=== PATIENT | male | born 1975 | race Caucasian/White ===

== ENCOUNTER 2017-11-24 18:52 | Inpatient (IN) | payer OTHER ==
[~2017-11-24] VITALS: Ht 170.2 cm; Wt 93.0 kg
--- NOTE | 2017-11-24 18:58 | ED HEADACHE COMPLAINT ---
History of Present Illness General Chief Complaint: Headache Stated Complaint: HEADACHE Source: patient Exam Limitations: no limitations Allergies Coded Allergies: sumatriptan (From IMITREX) (Intermediate, CARDIAC FAILURE 11/24/17) Reconcile Medications Albuterol Sulfate (Proair Hfa) 90 MCG HFA.AER.AD 2 PUF INH AD PRN RESP. ( Reported) Budesonide/Formoterol Fumarate (Symbicort 160-4.5 Mcg Inhaler) 160 MCG-4.5 MCG/ ACTUATION HFA.AER.AD 2 PUF INH QAM RESP. (Reported) Cetirizine HCl (Zyrtec) 10 MG TABLET 1 TAB PO DAILY ALLERGIES (Reported) Hydrochlorothiazide 25 MG TABLET 1 TAB PO DAILY DIURETIC/BP (Reported) Ibuprofen (Wal-Profen) 200 MG TABLET 4 TAB PO PRN PAIN (Reported) Lisinopril 40 MG TABLET 1 TAB PO DAILY BP (Reported) Methadone HCl 10 MG/5 ML SOLUTION 80 MG PO DAILY MENTAL HEALTH (Reported) Naproxen Sodium (Aleve) 220 MG CAPSULE 3-4 TAB PO BID PAIN (Reported) Tiotropium Stollings (Spiriva) 18 MCG CAP.W.DEV 1 CAP INH DAILY RESP. (Reported ) Triage Nurses Notes Reviewed? 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 Patient does state that yesterday his headache improved however today headache was unrelieved with Aleve. Patient also complains of chronic shortness of breath with no new changes however states he has photophobia and mild nausea however can tolerate by mouth prior to arrival. Denies any fever chills acute onset or thunderclap worse headache of life symptoms, chest pain arm pain jaw pain leg swelling hemoptysis. (Jeremy CARMEN,Andres) Vital Signs & Intake/Output Vital Signs & Intake/Output Vital Signs Date Time Temp Pulse Resp B/P B/P Pulse O2 O2 Flow FiO2 Mean Ox Delivery Rate 11/24 2154 75 18 176/76 88 Nasal 2.0L Cannula 11/24 2043 97.5 72 18 205/110 11/24 2035 72 205/110 11/24 2034 97.5 73 18 203/108 93 Aerosol 10L Mask 11/24 2010 91 Nasal 2.0L Cannula 11/24 2001 90 Room Air Room Air 11/24 1957 97.1 77 16 227/122 11/24 1957 97.1 77 16 227/122 11/24 1945 77 18 227/122 84 Room Air Room Air 11/24 1926 80 11/24 190 97.1 86 16 227/133 84 Room Air (Beatriz NICHOLS,Madi Gleason) Past History Medical History Any Pertinent Medical History? see below for history Neurological: migraine Cardiovascular: hypertension Respiratory: bronchitis, COPD Psychiatric: IV drug abuse Surgical History Surgical History: non-contributory Family History Hx Contributory? No (Andres Dorsey) Review of Systems Review of Systems Constitutional: Reports: no symptoms. Eyes: Reports: see HPI, photophobia. Ears, Nose, Throat, Mouth: Reports: no symptoms. Respiratory: Reports: see HPI, short of breath. Cardiovascular: Reports: no symptoms. Gastrointestinal/Abdominal: Reports: see HPI, nausea. Denies: abdominal pain. Genitourinary: Reports: no symptoms. Musculoskeletal: Reports: no symptoms. Skin: Reports: no symptoms. Neurological/Psychological: Reports: see HPI, headache. Hematologic/Endocrine: Reports: no symptoms. Endocrine: Reports: no symptoms. Immunologic/Allergic: Reports: no symptoms. All Other Systems: Reviewed and Negative (Andres Dorsey) Physical Exam Physical Exam General Appearance: no apparent distress, comfortable, obese Head: atraumatic Eyes: Bilateral: normal appearance, PERRL, EOMI. Ears, Nose, Throat: normal pharynx, normal ENT inspection, hearing grossly normal Neck: normal inspection Respiratory: quiet respiration, decreased breath sounds Cardiovascular: regular rate/rhythm Gastrointestinal: normal bowel sounds, soft, non-tender Extremities: normal inspection, normal capillary refill, no edema Cranial Nerves: normal hearing, normal speech, PERRL Skin: intact, normal color, warm/dry Core Measures Sepsis Present: No Sepsis Focused Exam Completed? No (Andres Dorsey) Progress Differential Diagnosis: carotid dissection, cav sinus thromb, cluster HAY, encephalitis, IC mass/tumor, intracranial Hem., meningitis, migraine HAY, musculoskeletal pain, sinusitis, SSS thrombosis, subarach. Hem., tension HAY, temporal arteritis, TMJ syndrome, viral cephalgia Diagnostic Imaging: Viewed by Me: Radiology Read, CT Scan. Radiology Impression: no acute abnormality CXR Impression: no acute abnormality, no infiltrates Initial ED EKG: normal p-waves, normal QRS complex, normal sinus rhythm, 72 BPM, NSR Comments: PATIENT: GORDON HAGEN PRESENT AGE: 42 PATIENT ACCOUNT NO: [id number] : 75 LOCATION: [facility] ORDERING PHYSICIAN: Andres CARMEN SERVICE DATE: 11/24/17 EXAM TYPE: CAT - CT HEAD WO IV CONTRAST EXAMINATION: CT HEAD WITHOUT CONTRAST CLINICAL INFORMATION: Headache COMPARISON: None TECHNIQUE: Contiguous axial imaging was performed from the skull base to vertex without intravenous administration of contrast. DLP: 620.92 mGy-cm FINDINGS: There is no evidence of acute intracranial hemorrhage or territorial infarction. No abnormal mass effect or midline shift is seen. Stephens to white matter differentiation is well preserved. No extra-axial fluid collections are identified. The ventricles are normal in size. There is no abnormal attenuation within the brain parenchyma. No osseous abnormality. There is a small density at the vertex of the left parietal scalp. The mastoid air cells and visualized portions of the paranasal sinuses are well aerated. IMPRESSION: No acute intracranial pathology. DICTATED BY: Russ Bradley MD DATE/TIME DICTATED:11/24/172130 TERRITORY SALES REPRESENTATIVE:AISHWARYA PATIENT: GORDON HAGEN PRESENT AGE: 42 PATIENT ACCOUNT NO: [id number] : 75 LOCATION: ER ORDERING PHYSICIAN: Andres CARMEN SERVICE DATE: 11/24/17 EXAM TYPE: RAD - XRY-PORTABLE CHEST XRAY EXAMINATION: XR PORTABLE CHEST CLINICAL INFORMATION: Shortness of breath. Hypertension. COMPARISON: None TECHNIQUE: Portable frontal view of the chest was obtained. 8:03 PM FINDINGS: No significant abnormality is noted involving the heart, lungs, mediastinum, bony thorax or soft tissues. IMPRESSION: No acute abnormality of the chest. DICTATED BY: Russ Bradley MD DATE/TIME DICTATED:11/24/17 / (Andres Dorsey) Plan of Care: Orders Procedure Date/time Status Regular Diet 11/25 B Active Misc Message 11/24 2121 Active ED Holding Orders 11/24 2121 Active Vital Signs 11/24 2121 Active Code Status 11/24 2121 Active Patient Data 11/24 2115 Active Admit to inpatient 11/24 2111 Active Intake & Output 11/24 1999 Active RAPID VIRAL INFLUENZA A 11/24 1918 Complete D-DIMER 11/24 1916 Complete ARTERIAL BLOOD GAS (GEN) 11/24 1915 Active Telemetry/[place] Operator Surface 11/24 1912 Active URINE DRUG SCREEN FOR ER ONLY 11/24 1909 Complete URINALYSIS 11/24 1909 Complete TROPONIN LEVEL 11/24 1909 Complete COMPREHENSIVE METABOLIC PANEL 11/24 1909 Complete CBC WITHOUT DIFFERENTIAL 11/24 1909 Complete EKG 11/24 1907 Active Laboratory Tests 11/24/172020: D-Dimer High Sensitivty < 200 11/24/171951: Urine Opiates Screen 1733.00, Methadone Screen > 735 H, Barbiturate Screen < 60 , Ur Phencyclidine Scrn < 6.00, Amphetamines Screen < 100, U Benzodiazepines Scrn < 85, Urine Cocaine Screen < 50, Urine Cannabis Screen < 5.00, Urine Color YEL, Urine Clarity CLEAR, Urine pH 7.0, Ur Specific [place] 1.025, Urine Protein 100 H, Urine Ketones NEG, Urine Nitrite NEG, Urine Bilirubin NEG, Urine Urobilinogen 0.2, Ur Leukocyte Esterase NEG, Ur Microscopic SEDIMENT EXAMINED, Urine RBC 3-5, Urine WBC RARE, Ur Epithelial Cells RARE, Urine Bacteria RARE H, Urine Mucus FEW, Urine Hemoglobin SMALL H, Urine Glucose NEG 11/24/171932: Anion Gap 9, Estimated GFR > 60, BUN/Creatinine Ratio 26.7 H, Glucose 114 H, Calcium 9.9, Total Bilirubin 1.0, AST 26, ALT 43, Alkaline Phosphatase 111, Troponin I < 0.01, Total Protein 8.1, Albumin 4.6, Globulin 3.5, Albumin/ Globulin Ratio 1.3, CBC w Diff NO MAN DIFF REQ, RBC 6.13 H, MCV 88.1, MCH 28.2, RDW 13.9, MPV 7.8, Gran % 76.0 H, Lymphocytes % 14.2 L, Monocytes % 7.8, Eosinophils % 1.1, Basophils % 0.9, Absolute Granulocytes 7.8 H, Absolute Lymphocytes 1.4, Absolute Monocytes 0.8 H, Absolute Eosinophils 0.1, Absolute Basophils 0.1, PUBS MCHC 32.0 L 11/24/171924: pH 7.36, pCO2 59 H, pO2 49 *L, HCO3 33 H, ABG O2 Sat (Measured) 80.0 L, Carboxyhemoglobin 5.1 H, O2 Concentration % R/A, Temperature 97.1, Phlebotomy Draw Site RIGHT RADIAL Microbiology 11/24 1951 NASOPHARYN: Influenza Virus A & B Rapid Smear - COMP Other differential diagnoses include pneumothorax hemothorax pulmonary embolism myocardial infarction bronchospasms bronchitis pneumonia Patient currently on arrival is resting comply bedside no respiratory distress HOWEVER oxygen saturation does know at room air between 80 and 85%. After ABG was administered patient was given supplemental oxygen Patient does have concerns of significantly elevated blood pressure and symptoms of photophobia and headache and which labetalol was administered along with his normal by mouth medications with minimal improvement of his blood pressure symptoms of headache mildly improved CT scan was ordered however there is no neurological deficit on exam, Patient was given a low-dose 1 hour nebulizer treatment for concerns of hypoxia Negative d-dimer negative troponin and EKG was unremarkable Patient will be admitted for concerns of hypertensive urgency and COPD exacerbation ANOTHER 10 mg of labetalol was administered Discussed admission with Dr. Henderson I also discussed with patient and fianc of my concerns of patient being on methadone and current drug screen showing opiates and methadone (Jeremy CARMEN,Andres) Comments: 11/24/2017 8:05:59 PM patient states he has no dyspnea currently. I have updated him on test results. I also notified him that we will likely admit him given his severe hypertension and the findings on ABG. (Beatriz NICHOLS,Madi Gleason) Departure Departure Disposition: STILL A PATIENT Condition: Guarded Clinical Impression Primary Impression: Hypertensive urgency Secondary Impressions: COPD exacerbation, Headache, Opiate abuse, episodic Departure Forms: Customer Survey General Discharge Information Admission Note Spoke With: Lauryn Pugh MD Documentation of Exam: Documentation of any treatments & extenuating circumstances including Concerns Regarding Discharge (functional status, medication knowledge or non-compliance, living conditions, etc.) that warrant an admission rather than observation: [ Patient requires IV steroids, antibiotics, repeat NEBS, pulmonary consultation and antihypertensive medications for concerns of hypertensive urgency and COPD] (Andres Dorsey) PA/RIB BENDER Co-Sign Statement Statement: ED Attending supervision documentation- [x] I saw and evaluated the patient. I have also reviewed all the pertinent lab results and diagnostic results. I agree with the findings and the plan of care as documented in the PA's/RIB BENDER's documentation. Patient presents for headache and shortness of breath. Physical examination reveals a nonfocal neurologic examination despite severe hypertension. [] I have reviewed the ED Record and agree with the PA's/RIB BENDER's documentation. [] Additions or exceptions (if any) to the PAs/RIB BENDER's note and plan are summarized below: [] (Beatriz NICHOLS,Madi Gleason) Critical Care Note Critical Care Note Critical Care Time: 30-74 min (Andres Dorsey)
[2017-11-24] MEDS ORDERED: SPIRIVA18 MCG INH (19:27)
[2017-11-24] MEDS ORDERED: PROAIR HFA8.5 GM INH (19:28)
[2017-11-24] MEDS ORDERED: SYMBICORT 16010.2 GM INH (19:29)
[2017-11-24] MEDS ORDERED: HYDROCHLOROTHIA25 M1 PO (19:29)
[2017-11-24] MEDS ORDERED: LISINOPRIL40 M1 PO (19:29)
[2017-11-24] MEDS ORDERED: METHADONE10 MG/5 M2 PO (19:30)
[2017-11-24] MEDS ORDERED: WAL-PROFEN200 MG PO (19:30)
[2017-11-24] MEDS ORDERED: ALEVE220 M1 PO (19:30)
[2017-11-24] MEDS ORDERED: ZYRTEC10 M3 PO (19:31)
[2017-11-24 19:47] LABS: ABSOLUTE BASOPHIL COUNT 0.1 /CUMM (0.0-0.2); ABSOLUTE EOSINOPHIL COUNT 0.1 /CUMM (0.0-0.7); ABSOLUTE GRANULOCYTE CT 7.8 /CUMM (1.4-6.5); ABSOLUTE LYMPH COUNT 1.4 /CUMM (1.2-3.4); ABSOLUTE MONOCYTE COUNT 0.8 /CUMM (0.10-0.60); BASOPHIL % 0.9 % (0.0-2.0); EOSINOPHIL % 1.1 % (0-5); MEAN CORPUSCULAR HGB 28.2 PG (27.0-31.0); MEAN CORPUSCULAR VOLUME 88.1 FL (80.0-94.0); MEAN PLATELET VOLUME 7.8 FL (7.4-10.4); PLATELET COUNT 261 /CUMM (130-400); RBC DISTRIBUTION WIDTH 13.9 % (11.5-14.5); RED BLOOD CELL CT 6.13 /CUMM (4.70-6.10); WHITE BLOOD CELL COUNT 10.2 /CUMM (4.8-10.8)
--- NOTE | 2017-11-24 20:27 | RADIOLOGY REPORT ---
EXAMINATION: XR PORTABLE CHEST CLINICAL INFORMATION: Shortness of breath. Hypertension. COMPARISON: None TECHNIQUE: Portable frontal view of the chest was obtained. 8:03 PM FINDINGS: No significant abnormality is noted involving the heart, lungs, mediastinum, bony thorax or soft tissues. IMPRESSION: No acute abnormality of the chest.
--- NOTE | 2017-11-24 21:32 | History & Physical ---
Don Nicholas MD 11/24/172130: General Information and HPI MD Statement: I have seen and personally examined GORDON HAGEN and documented this H&P. The patient is a 42 year old M who presented with a patient stated chief complaint of [headache]. Source of Information: patient, family Exam Limitations: no limitations History of Present Illness: Patient is a 42-year-old male with past medical history of hypertension diagnosed 10 years ago, migraines not currently on any medications, asthma and COPD, history of IV drug use last used heroin 1 year prior to this admission currently on methadone, history of hepatitis C s/p Harvoni treatment, carpal tunnel syndrome, history of mutliple admissions over the past year for respiratory failure requiring intubation and ICU admission presents this admission with chief complaint of headaches. Patient states that over the past few weeks he has been having flu like symptoms with fever and chills and sinus pressure and nasal congestion. States he has been taking zyrtec and sudafed which helped a little however started experiencing headaches. States that over the last month he has had approximately 5x. States over the past 3 days the headache has worsened. Describes the headache as a constant, throbbing, diffuse pain over entire head however mainly concentrated around his eyes. Patient endorses photophobia, nausea, vomitting, double vision. Denies chest pain, SOB, abdominal pain, weakness or numbness. Patient states he found some relief one night prior to admission with alleve and ibuprofen and was able to sleep for a short while. However states the headache returned and has been too intense which prompted this hospital visit. Patient states he did receive some vicodin from his Aunt (who was unaware of his IVDA history). Patient states 6 days prior to this admission he ran out of his antihypertensive medications and was unable to go see his PCP. States he is on lisinopril and hydrochlorothiazide however has not taken the hydrochlorothiazide for approximately 1 month. States he monitors his BP at home and it runs in the 160s /90s. Patient states he has a history of migraines however has not been on any medications recently. Is not currently on any abortive or prophylactic therapy. States he is allergic to imitrex and went into respiratory distress. Patient states prior to the past month when he was compliant with his antihypertensive medications he had on average 1-2 headaches/month. Patient states that over the past 1 year he has required multiple hospital visits due to respiratory failure and has required intubation and ICU admission. [facility] he was sent home with oxygen supplement however has not required oxygen up until this most recent illness. ROS: negative except as above PMH: as above FH: Father ( age 54) of brain cancer, h/o stroke and htn, Mother recently passed - has history of stroke and HTN, Brother - healthy SH: Patient states he has smoked approximately 1ppd for the past 25 years however has decreased to 3 cig per day recently. [facility] he used heroin in the past however has been clean for past year. [facility] he has a remote history of cocaine use 10 years ago. Allergies: Mold Imitrex On admission: Vitals: Tmax: 97.5, HR: 72-86, RR: 16-18, BP: 227/133 --> 205/110 Labs: WBC: 10.2, H/H: 17.3/54, Platelets: 261 Na: 138, K: 4.8, Cl: 92, CO2: 36, BUN: 16, Cr: 0.6, Glucose: 114, Trop < 0.01 U/A: negative AB.36/pCO2: 59,/pO2: 49/HCO3: 33 Imaging: Head CT: negative for acute pathology CXR: negative for acute pathology Allergies/Medications Allergies: Coded Allergies: sumatriptan (From IMITREX) (Intermediate, CARDIAC FAILURE 11/24/17) Home Med list Albuterol Sulfate (Proair Hfa) 90 MCG HFA.AER.AD 2 PUF INH AD PRN RESP. ( Reported) Azithromycin 500 MG TABLET 1 TAB PO DAILY copd Budesonide/Formoterol Fumarate (Symbicort 160-4.5 Mcg Inhaler) 160 MCG-4.5 MCG/ ACTUATION HFA.AER.AD 2 PUF INH QAM RESP. (Reported) Cetirizine HCl (Zyrtec) 10 MG TABLET 1 TAB PO DAILY ALLERGIES (Reported) Hydrochlorothiazide 25 MG TABLET 1 TAB PO DAILY DIURETIC/BP (Reported) Hydrochlorothiazide 25 MG TABLET 1 TAB PO DAILY hypertension Ibuprofen (Wal-Profen) 200 MG TABLET 4 TAB PO PRN PAIN (Reported) Lisinopril 40 MG TABLET 1 TAB PO BID HTN Methadone HCl 10 MG/5 ML SOLUTION 80 MG PO DAILY MENTAL HEALTH (Reported) Naproxen Sodium (Aleve) 220 MG CAPSULE 3-4 TAB PO BID PAIN (Reported) Prednisone 20 MG TABLET 1 TAB PO SEE INSTRUCT copd 1. take 4 tabs for 1 day 2. 3 tabs/day for 2 days 3. 2 tabs/day for 2 days 4. 1 tab/day for 2 days then stop Tiotropium [place] (Spiriva) 18 MCG CAP.W.DEV 1 CAP INH DAILY RESP. (Reported ) Past History Travel History Traveled to [place] past 21 day No Medical History Neurological: migraine EENT: NONE Cardiovascular: hypertension Respiratory: bronchitis, COPD Gastrointestinal: NONE Hepatic: NONE Renal: NONE Musculoskeletal: NONE Psychiatric: IV drug abuse Endocrine: NONE Surgical History Surgical History: non-contributory Past Family/Social History Psychosocial History ETOH Use: denies use Illicit Drug Use: denies illicit drug use Review of Systems Review of Systems Constitutional: Reports: chills, fever. Cardiovascular: Denies: no symptoms, see HPI. Respiratory: Reports: see HPI, cough, short of breath. GI: Reports: see HPI, nausea, vomiting. Genitourinary: Denies: no symptoms. Musculoskeletal: Denies: no symptoms. Skin: Denies: no symptoms. Neurological/Psychological: Reports: see HPI, headache. Exam & Diagnostic Data Last 24 Hrs of Vital Signs/I&O Vital Signs Date Time Temp Pulse Resp B/P B/P Pulse O2 O2 Flow FiO2 Mean Ox Delivery Rate 11/24 2154 75 18 176/76 88 Nasal 2.0L Cannula 11/24 2043 97.5 72 18 205/110 11/24 2035 72 205/110 11/24 2034 97.5 73 18 203/108 93 Aerosol 10L Mask 11/24 2010 91 Nasal 2.0L Cannula 11/24 2001 90 Room Air Room Air 11/24 1957 97.1 77 16 227/122 11/24 1957 97.1 77 16 227/122 11/24 1945 77 18 227/122 84 Room Air Room Air 11/24 1926 80 11/24 190 97.1 86 16 227/133 84 Room Air Physical Exam General Appearance Alert, Oriented X3, Cooperative, No Acute Distress Skin Temp/Moisture Exam: Warm/Dry HEENT Atraumatic, PERRLA, EOMI, Mucous Membr. moist/pink Cardiovascular Regular Rate, Normal S1, Normal S2 Lungs decreased air entry bilaterally with prolonged expiratory wheezing Abdomen Normal Bowel Sounds, Soft, No Tenderness Neurological Normal Speech, Strength at 5/5 X4 Ext, Normal Tone, Sensation Intact, Cranial Nerves 3-12 NL, Reflexes 2+, negative babinksi, negative rhomberg Extremities No Clubbing, No Cyanosis, No Edema, Normal Pulses, No Tenderness/ Swelling, thickening of toenails Vascular Normal Pulses, Pulses Symmetrical Last 24 Hrs of Labs/Amadou: Laboratory Tests 11/24/172020: D-Dimer High Sensitivty < 200 11/24/171951: Urine Opiates Screen 1733.00, Methadone Screen > 735 H, Barbiturate Screen < 60 , Ur Phencyclidine Scrn < 6.00, Amphetamines Screen < 100, U Benzodiazepines Scrn < 85, Urine Cocaine Screen < 50, Urine Cannabis Screen < 5.00, Urine Color YEL, Urine Clarity CLEAR, Urine pH 7.0, Ur Specific [place] 1.025, Urine Protein 100 H, Urine Ketones NEG, Urine Nitrite NEG, Urine Bilirubin NEG, Urine Urobilinogen 0.2, Ur Leukocyte Esterase NEG, Ur Microscopic SEDIMENT EXAMINED, Urine RBC 3-5, Urine WBC RARE, Ur Epithelial Cells RARE, Urine Bacteria RARE H, Urine Mucus FEW, Urine Hemoglobin SMALL H, Urine Glucose NEG 11/24/171932: Anion Gap 9, Estimated GFR > 60, BUN/Creatinine Ratio 26.7 H, Glucose 114 H, Calcium 9.9, Total Bilirubin 1.0, AST 26, ALT 43, Alkaline Phosphatase 111, Troponin I < 0.01, Total Protein 8.1, Albumin 4.6, Globulin 3.5, Albumin/ Globulin Ratio 1.3, CBC w Diff NO MAN DIFF REQ, RBC 6.13 H, MCV 88.1, MCH 28.2, RDW 13.9, MPV 7.8, Gran % 76.0 H, Lymphocytes % 14.2 L, Monocytes % 7.8, Eosinophils % 1.1, Basophils % 0.9, Absolute Granulocytes 7.8 H, Absolute Lymphocytes 1.4, Absolute Monocytes 0.8 H, Absolute Eosinophils 0.1, Absolute Basophils 0.1, PUBS MCHC 32.0 L 11/24/171924: pH 7.36, pCO2 59 H, pO2 49 *L, HCO3 33 H, ABG O2 Sat (Measured) 80.0 L, Carboxyhemoglobin 5.1 H, O2 Concentration % R/A, Temperature 97.1, Phlebotomy Draw Site RIGHT RADIAL Microbiology 11/24 1951 NASOPHARYN: Influenza Virus A & B Rapid Smear - COMP Assessment/Plan Assessment: Patient is a 42-year-old male with past medical history of hypertension diagnosed 10 years ago, migraines not currently on any medications, asthma and COPD, history of IV drug use last used heroin 1 year prior to this admission currently on methadone, history of hepatitis C s/p Harvoni treatment, carpal tunnel syndrome, history of mutliple admissions over the past year for respiratory failure requiring intubation and ICU admission presenting this admission with findings consistent with hypertensive urgency vs emergency, COPD exacerbations and headaches related to uncontrolled blood pressure vs migraines. Patient will be admitted to the telemtry floor for management of the followin. Hypertensive urgency vs emergency - Patient's blood pressure upon arrival was 227/133 which decreased to 205/110 after receiving labetalol IV, lisinopril and hydrochlorothiazide in the ED. Patient is having headaches however is not exhibiting signs of end organ damage based on physical exam with no focal neurological finding and normal fundoscopic exam, or lab work with normal troponin, creatinine of 0.[address] and negative chest xray. * continue serial trops and EKG * continue to monitor on telemetry * slowly decrease blood pressure 2. Headaches mostly likely component of both migraine and secondary to hypertension * outpatient neurology referral * pain control per pain pathway 3. COPD exacerbation/Asthma - patient desatted into the 80s requiring 10L aerosol mask * oxygen supplement as needed * TRC and DuoNeb * Azithromycin 250mg IV * IV Solumedrol 4. History of IVDA with heroin currently on methadone. Patient last took his methadone this morning at 7AM. * Confirm methadone dose with the [facility] in the AM 5. Tobacco use * Patient counseled on tobacco cessation Patient requires primary care referral DVT PPx: Heparin SC Diet: Heart healthy Code: Full code As Ranked By This Provider Problem List: 1. Hypertensive urgency 2. Headache 3. COPD exacerbation 4. Opiate abuse, episodic Core Measures/Misc (08/07) Acute Coronary Syndrome ACS Diagnosis: No Congestive Heart Failure Congestive Heart Failure Diagnosis No Cerebrovascular Accident CVA/TIA Diagnosis: No VTE (View Protocol) VTE Risk Factors Age>40 No Mechanical VTE Prophylaxis d/t N/A MechProphylax Ordered No VTE Pharm Prophylaxis d/t NA PharmProphylax ordered Sepsis (View protocol) Sepsis Present: No Princess Martinez 11/24/17 2333: Resident Review Statement Resident Statement: examined this patient, discussed with customer experience intern, agreed with customer experience intern, discussed with family, reviewed EMR data (avail), discussed with nursing , discussed with case mgmt, reviewed images, amended to note Other Findings: The 42-year-old gentleman with past medical history of hypertension, hepatitis C finished his treatments with TAWANNA Rainey cleared for past now on daily methadone, relatively uncontrolled migraine headaches not on mainetnance medication , COPD and childhood asthma presented to the emergency room complaining of worsening headache and blurry vision. According to patient his intermittent headaches, associated with blurred vision (just when the headache is very severe); he had episodes of upper respiratory tract infection and took [id number] pseudoephedrine. Patient reports that taking cold medicine worsened his headaches. Haedaches are 6 out of 10, not radiating, W/O any weajness or numbness, Chest pain or shortness of breath. He ran out of lisionopril 6 days ago and as he has not been complaint with taking HCTZ at all; his average BP runs 160s SBP over 130s DBP; has got headaches more frequently ( which he beleives is different from his normal migraine headaches); the lates spell of headache was today, was accompanied w/ blurry vission and chest tightness. He denies and CP, SOB ( his COPD and asthma has been controlled ; has not been using albuterol or O2 at home); no weakness or numbness, no shining floaters in his visual field. SH: daily smoker 20PPd, on daily methadone 80 mg and remote Hx of Coccain abuse, FH: ?? stroke in his father and HTN in both parents. In the ED initially his VS: 97/86/16;227/130; 84% RA. He was given 40 mg of lisinopril and 25 mg HCTZ and 20 mg IV labetalol push and blood pressure decreased to 176/76. ROS: head ache and chest tightness and blurr vision are all resolved. PH/EX: HEET: no JVD was presente, No papiledema; Heart: S1S2 no murmur; Lungs: very limited air movement, and prolonged expiration ?? wheezingneuro exa,: strenght and senseation: WNL, romberg: negative; No peripheral edema, pulses symmetric in both upper and lower extremities Of note patient has a history of frequent hospitalization for COPD exacerbation and multiple pneumonias and according to patient he recently had a cardiac stress test and echo of his hospitalization. Pertinent Data: ABG 7.36/59/33 d-dimer negative, chest x-ray: No evidence of flash pulmonary edema infiltration no widening of the mediastinum. Head CT scan without IV contrast: No pathology finding Blood work within normal limits Chemistry: Normal electrolytes BUN 16 creatinine 0.6 bicarbonate 36 list of active problems #1 hypertensive emergency #2 uncontrolled migraine headache #3 COPD/asthma overlap syndrome exacerbation #4 chronic opiate dependence Plan Admit to telemetry for continuous heart monitoring Trending troponin EKG every 6 hours Decrease blood pressure by 20% the first 24 hours (permissive hypertension) to prevent COST REPORT CLERK ischemia Watch of antihypertensive medication tonight and resume lisinopril and hydrochlorothiazide in the a.m. Continue Symbicort 1 puff twice a day spriva 1 puff daily IV azithromycin 500 mg daily Neurology referral for outpatient assessments of his migraine headaches Primary care referral for his hypertension management and evaluation for secondary causes of hypertension Confirm the dose of methadone with [facility] in [place] Subcutaneous heparin 5000 units every 8 hours for DVT prophylaxis Lauryn Allison 11/25/17 0422: Attending MD Review Statement Attending Statement Attending MD Statement: examined this patient, discuss w/resident/PA/OCEAN IMPORT REPRESENTATIVE, agreed w/resident/PA/OCEAN IMPORT REPRESENTATIVE, discussed with family, reviewed EMR data (avail), reviewed images, amended to note Attending Assessment/Plan: CC: Headache PMH: Hypertension, COPD/asthma, questionable migraine, history of substance abuse (heroin) currently on methadone, history of hep C S/P treatment. Patient came to ER for severe persistent headache. Patient states that the first episode of headache started approximately 2 weeks back when he had upper respiratory sinus congestion, tried [id number] pseudoephedrine, and had a severe headache. Since that the patient has been having headache almost every day, intolerable, sometimes associated with blurry vision. Patient has not been taking his antihypertensives since many days because he is on out of prescription, could not get in axis with primary care physician. Patient was on HCTZ and lisinopril. Patient stopped HCTZ to 3 months and lisinopril at least a month. He denies any nausea, vomiting, passing out, floaters, flashes, double vision, neurological weakness, tingling numbness, chest pain, palpitation, chest tightness. Since the time of the upper respiratory symptoms patient also been noticing cough with increased for sputum production, mild shortness of breath. He denies any orthopnea, leg swelling, fever, chills or any pleuritic chest pain. Patient tried NSAIDs with some relief yesterday, started to have severe headache again today but waited for snowstorm to be over to come to ER. Also admits taking Vicodin couple of days back when his relative offered him some unknown pill for headache. Currently headache is much better Vitals: Afebrile, pulse in 70s, RR 18, blood pressure 227/133 on arrival, stated 205/110 then gradually improved to 170/99, initially saturating 84% on room air, improved to 90% on 2 L nasal cannula. On exam: A O 3, obese, cooperative, no acute distress, neck supple, JVD normal, no lymphadenopathy, mucosa moist, complete neurological examination unremarkable , no cerebellar signs, cranial nerves intact, Romberg negative, strength, tone, and reflexes normal. No dependent edema, no obvious skin rashes or inflammation CVS: S1-S2, RRR. RS: Significantly decreased air entry with prolonged expiration and wheezing. Abdomen: Soft, NT, ND, bowel sounds present. Labs: CBC unremarkable, sodium 138, potassium 4.8, chloride 92, bicarbonate 36, BUN 16, creatinine 0.6, glucose 114, calcium 9.9, LFT unremarkable, troponin less than 0.01 , d-dimer less than 200, U tox positive for opiates, methadone, UA unremarkable AB.36/59/49/33 on RA CXR: No acute cardiopulmonary process CT head: No acute intracranial pathology ECG: No acute changes Assessment and plan 52-year-old male with past medical history significant for hypertension, COPD, noncompliant with antihypertensives since last many days presented in ER with severe headache, currently better after treatment. Complete neurological examination unremarkable except significantly hypertensive upon arrival, received 2 doses of labetalol 10 mg, lisinopril 40 mg, hydrochlorothiazide 25 mg to decrease the blood pressure up to 190/96. Given his hypertensive urgency, (no evidence of end organ damage currently), and noncompliance since long duration, any to gradually decrease the blood pressure initially over 25-30% over 24 hours followed by any additional medications if required. Patient is also significant wheezing and prolonged expiration, has shortness of breath cough with sputum production, likely secondary to COPD exacerbation precipitated by recent viral infection. Influenza negative, we will also treat for COPD exacerbation. + Hypertensive urgency + COPD exacerbation + Headache + History of substance abuse currently on methadone - Admit to telemetry - Continuous telemetry monitoring - Serial troponin and EKG - No added when necessary medications for now for hypertension. Schedule lisinopril and HCTZ for tomorrow - Patient may require additional agent according to blood pressure readings - IV methylprednisolone 40 mg every 8 hour - TRC nebs with albuterol and ipratropium - Mucinex - IV azithromycin - try to taper down oxygen - The to confirm dose of methadone before resuming - DVT prophylaxis - Pain management
--- NOTE | 2017-11-24 21:37 | CT SCAN REPORT ---
EXAMINATION: CT HEAD WITHOUT CONTRAST CLINICAL INFORMATION: Headache COMPARISON: None TECHNIQUE: Contiguous axial imaging was performed from the skull base to vertex without intravenous administration of contrast. DLP: 620.92 mGy-cm FINDINGS: There is no evidence of acute intracranial hemorrhage or territorial infarction. No abnormal mass effect or midline shift is seen. Stephens to white matter differentiation is well preserved. No extra-axial fluid collections are identified. The ventricles are normal in size. There is no abnormal attenuation within the brain parenchyma. No osseous abnormality. There is a small density at the vertex of the left parietal scalp. The mastoid air cells and visualized portions of the paranasal sinuses are well aerated. IMPRESSION: No acute intracranial pathology.
--- NOTE | 2017-11-25 05:50 | Admission Certification ---
Admission Certification Certification Statement - As attending physician, I certify that at the time of - admission, based on clinical presentation, severity of - symptoms, need for further diagnostic testing and - therapeutic interventions, and risk of adverse outcomes - without in-hospital treatment, in my clinical assessment, - this patient requires an acute hospital stay for a minimum - of two nights or longer. I have also considered psychsocial - factors such as support system, advanced age, financial - issues, cognitive issues, and failed out-patient treatments, - past re-admission history, safety of patient, and lack of - compliance as applicable. Specific rationale supporting this admission is: HTN urgency, COPD exacerbation
--- NOTE | 2017-11-25 11:42 | PN- Housestaff ---
See Addendum Subjective Follow-up For: copd exacerbation hypertensive urgency Tele-Events Since Last Visit: Normal sinus rhythm 75 Subjective: Patient was seen and examined. He states that his headache is coming back slightly this morning. He attributes that to not taking his methadone today. He is having no dyspnea on 2 L. He states that he takes 2 L at home. Review of Systems Constitutional: Reports: no symptoms. EENTM: Reports: no symptoms. Cardiovascular: Reports: no symptoms. Respiratory: Reports: short of breath. Gastrointestinal: Reports: no symptoms. Neurological/Psychological: Reports: headache. Objective Last 24 Hrs of Vital Signs/I&O Vital Signs Date Time Temp Pulse Resp B/P B/P Pulse O2 O2 Flow FiO2 Mean Ox Delivery Rate 11/25 1458 98.2 86 18 160/78 92 Nasal Cannula 11/25 1352 Nasal 3.0L Cannula 11/25 1239 98.4 89 22 167/96 93 Nasal 2.5L Cannula 11/25 1009 98.1 79 16 138/96 11/25 0622 98.1 76 18 168/85 93 Nasal 2.0L Cannula 11/25 0432 98.2 75 18 183/93 94 Nasal 2.0L Cannula 11/25 0244 98.6 74 20 170/99 93 Nasal 2.0L Cannula 11/25 0000 99.1 74 18 190/96 93 Nasal 2.0L Cannula 11/24 2154 75 18 176/76 88 Nasal 2.0L Cannula 11/24 2044 97.5 72 18 205/110 11/24 203 72 205/110 11/24 2034 97.5 73 18 203/108 93 Aerosol 10L Mask 11/24 2010 91 Nasal 2.0L Cannula 11/24 2001 90 Room Air Room Air 11/24 1957 97.1 77 16 227/122 11/24 1957 97.1 77 16 227/122 11/24 1945 77 18 227/122 84 Room Air Room Air 11/24 1926 80 11/24 1902 97.1 86 16 227/133 84 Room Air Intake & Output 11/25 1600 11/25 0800 11/25 0000 Intake Total 240 240 Output Total 600 800 Balance -360 -560 Intake, Oral 240 240 Output, Urine 600 800 Patient 210 lb Weight Physical Exam General Appearance: Alert, Oriented X3, Cooperative, No Acute Distress Skin: No Rashes, No Breakdown, No Significant Lesion Skin Temp/Moisture Exam: Warm/Dry HEENT: Atraumatic, PERRLA, EOMI, Mucous Membr. moist/pink, funduscopic exam reveals normal vascularity Neck: Supple, No JVD Cardiovascular: Regular Rate, Normal S1, Normal S2, No Murmurs Lungs: mild wheezes throughout Abdomen: Normal Bowel Sounds, Soft, No Tenderness Neurological: Normal Speech, Strength at 5/5 X4 Ext, Normal Tone, Sensation Intact, Cranial Nerves 3-12 NL, Reflexes 2+ Extremities: No Clubbing, No Cyanosis, No Edema, Normal Pulses, No Tenderness/ Swelling Vascular: Normal Pulses, Pulses Symmetrical Current Medications: Current Medications Sig/Ruben Start time Last Medication Dose Route Stop Time Status Admin Acetaminophen 650 MG Q6P PRN 11/24 2300 AC PO Acetaminophen 1,000 MG Q6P PRN 11/24 2300 DC IV Albuterol Sulfate 3 ML Q 3-4 HRS PRN PRN 11/25 1415 AC 11/25 INH 1405 Albuterol Sulfate 2 PUF Q4-6 PRN PRN 11/24 2300 AC INH Albuterol Sulfate 0 .STK-MED ONE 11/24 2036 DC INH Albuterol Sulfate 18 ML ONCE ONE 11/24 1999 DC 11/24 INH 11/24 Albuterol Sulfate 3 ML ONCE ONE 11/24 193 DC 11/24 INH 11/24 1930 193 Azithromycin 500 MG DAILY 11/25 1000 AC Sodium Chloride 250 ML IV Azithromycin 500 MG ONCE ONE 11/24 2014 DC 11/24 Sodium Chloride 250 ML IV 11/24 2114 2206 Budesonide/ 2 PUF QAM 11/25 1000 AC 11/25 Formoterol Fumarate INH 1036 Enoxaparin Sodium 40 MG DAILY 11/25 1000 AC 11/25 SC 1008 Hydrochlorothiazide 25 MG DAILY 11/25 1000 AC 11/25 PO 1008 Hydrochlorothiazide 25 MG ONCE ONE 11/24 1944 DC 11/24 PO 11/24 Ibuprofen 0 .STK-MED ONE 11/25 1321 DC PO Ibuprofen 400 MG Q4P PRN 11/25 0015 AC 11/25 PO 1321 Ipratropium [place] 2.5 ML ONCE ONE 11/24 193 DC 11/24 INH 11/24 Labetalol HCl 10 MG ONCE ONE 11/24 2044 DC 11/24 IV 11/24 Labetalol HCl 0 .STK-MED ONE 11/24 1943 DC IV Labetalol HCl 10 MG ONCE ONE 11/24 1914 DC 11/24 IV 11/24 Lisinopril 40 MG DAILY 11/25 1000 AC 11/25 PO 1009 Lisinopril 40 MG ONCE ONE 11/24 1944 DC 11/24 PO 11/24 Lisinopril 0 .STK-MED ONE 11/24 1943 DC PO Methadone HCl 80 MG DAILY 11/25 1000 AC 11/25 PO 0909 Methadone HCl 0 .STK-MED ONE 11/25 0911 DC PO Methylprednisolone 40 MG Q8 11/25 0600 AC 11/25 IV 11/25 2300 1409 Methylprednisolone 0 .STK-MED ONE 11/24 1943 DC .ROUTE Methylprednisolone 125 MG ONCE ONE 11/24 193 DC 11/24 IV 11/24 Omeprazole 0 .STK-MED ONE 11/25 1717 DC PO Polyethylene Glycol 17 GM AT BEDTIME PRN 11/24 2300 AC PO Prednisone 40 MG DAILY 11/26 1000 AC PO Tiotropium [place] 1 PUF DAILY 11/25 1000 AC 11/25 INH 1036 Last 24 Hrs of Lab/Amadou Results Last 24 Hrs of Labs/Mics: Laboratory Tests 11/25/17 1002: Troponin I < 0.01 11/25/17 0420: Troponin I < 0.01 11/24/171: D-Dimer High Sensitivty < 200 11/24/172: Urine Opiates Screen 1733.00, Methadone Screen > 735 H, Barbiturate Screen < 60 , Ur Phencyclidine Scrn < 6.00, Amphetamines Screen < 100, U Benzodiazepines Scrn < 85, Urine Cocaine Screen < 50, Urine Cannabis Screen < 5.00, Urine Color YEL, Urine Clarity CLEAR, Urine pH 7.0, Ur Specific [place] 1.025, Urine Protein 100 H, Urine Ketones NEG, Urine Nitrite NEG, Urine Bilirubin NEG, Urine Urobilinogen 0.2, Ur Leukocyte Esterase NEG, Ur Microscopic SEDIMENT EXAMINED, Urine RBC 3-5, Urine WBC RARE, Ur Epithelial Cells RARE, Urine Bacteria RARE H, Urine Mucus FEW, Urine Hemoglobin SMALL H, Urine Glucose NEG 11/24/171932: Anion Gap 9, Estimated GFR > 60, BUN/Creatinine Ratio 26.7 H, Glucose 114 H, Calcium 9.9, Total Bilirubin 1.0, AST 26, ALT 43, Alkaline Phosphatase 111, Troponin I < 0.01, Total Protein 8.1, Albumin 4.6, Globulin 3.5, Albumin/ Globulin Ratio 1.3, CBC w Diff NO MAN DIFF REQ, RBC 6.13 H, MCV 88.1, MCH 28.2, RDW 13.9, MPV 7.8, Gran % 76.0 H, Lymphocytes % 14.2 L, Monocytes % 7.8, Eosinophils % 1.1, Basophils % 0.9, Absolute Granulocytes 7.8 H, Absolute Lymphocytes 1.4, Absolute Monocytes 0.8 H, Absolute Eosinophils 0.1, Absolute Basophils 0.1, PUBS MCHC 32.0 L 11/24/171924: pH 7.36, pCO2 59 H, pO2 49 *L, HCO3 33 H, ABG O2 Sat (Measured) 80.0 L, Carboxyhemoglobin 5.1 H, O2 Concentration % R/A, Temperature 97.1, Phlebotomy Draw Site RIGHT RADIAL Microbiology 11/24 1951 NASOPHARYN: Influenza Virus A & B Rapid Smear - COMP Assessment/Plan Assessment: Assessment Patient is a 42-year-old male with a past medical history of hypertension diagnosed 10 years ago currently being prescribed hydrochlorothiazide and lisinopril, migraines not currently on any medication, asthma, COPD, history of IV drug abuse, current smoker, history of hepatitis C status post her bony treatment, multiple admissions over the past year for respiratory failure requiring ICU admission and intubation the comes to see us for severe headache and shortness of breath with cough for the past 3 days. He also notes fever, chills, sinus pressure, nasal congestion. Patient was off of his pressure meds for about 6 days when he was admitted. Patient does not take medication for his migraines and is allergic to Imitrex. The patient is on 2 L oxygen at home. He has a family history in his father and mother of stroke and hypertension. He was given labetalol IV, lisinopril, hydrochlorothiazide in the ED after his blood pressure was found to be 227/133. Only his blood pressure was found to be 160/90. Plan #1 hypertensive urgency: Patient has no other signs of end organ damage and no focal neurological findings with a normal funduscopic exam. He has normal troponins and a negative head CT and chest x-ray. Serial troponins and EKGs were negative. -Restart patient on the Cipro 40 and hydrochlorothiazide 25 -Continue to monitor blood pressure -Continue to monitor on telemetry -Refer to cardiology on discharge #2 headaches most likely secondary to hypertension but also possibly from migraine history -We will refer to outpatient neurology -Pain control per pathway -Do not give opiates as patient is former opiate abuser on methadone #3 COPD exacerbation/asthma: -Patient desatted to the 80s requiring 10 L aerosol mask -Continue to give oxygen as needed -TRC's and nebs -Azithromycin 250 mg IV to be transitioned to azithromycin 500 mg by mouth for a total of 5 days of treatment -IV Solu-Medrol today transitioned to 40 mg prednisone by mouth today and to be discharged on taper of 40 mg, 30 mg for 2 days, 20 g or 2 days, 10 mg for 2 days and then stopped. -Patient should have workup for lung disease such as alpha 1 antitrypsin deficiency as he is young and has had several admissions for hypoxia including ICU admission and intubation. #4 history of IV drug abuse currently on methadone -The patient on methadone 80 mg as per [facility] Problem List: 1. Hypertensive urgency 2. Headache 3. COPD exacerbation 4. Opiate abuse, episodic Pain Ratin Pain Location: Headache Pain Goal: Pain 4 or less Pain Plan: Per pathway, no opiates Tomorrow's Labs & Rationales: CBC, BEP
[2017-11-25 12:39] VITALS: BP 167/96
--- NOTE | 2017-11-25 16:57 | PN- Student ---
Subjective Subjective: Patient is a 42-year-old male who presented with a chief complaint of headache with past medical history of hypertension diagnosed 10 years ago, migraines not currently on any medications, asthma and COPD, history of IV drug use last used heroin 1 year prior to this admission currently on methadone, history of hepatitis Patient states that over the past few weeks he has been having flu like symptoms with fever and chills and sinus pressure and nasal congestion. States he has been taking zyrtec and sudafed which helped a little however started experiencing headaches. Over the past 3 days the headache has worsened. Describes the headache as a constant, throbbing, diffuse pain over entire head however mainly concentrated around his eyes. Patient had photophobia, nausea, vomitting, double vision. Denies chest pain, SOB, abdominal pain, weakness or numbness. Patient states he found some relief one night prior to admission with alleve and ibuprofen and was able to sleep for a short while. However states the headache returned and has been too intense which prompted this hospital visit. Patient states he did receive some vicodin from his Aunt (who was unaware of his IVDA history). ROS: negative except as above PMH: as above FH: Father ( at age 54) due to brain cancer, history stroke and hypertension. Mother recently passed - has history of stroke and HTN, Brother - healthy SH: Patient states he has smoked approximately 1ppd for the past 25 years however has decreased to 3 cig per day recently. States he used heroin in the past however has been clean for past year. States he has a remote history of cocaine use 10 years ago. Allergies: Mold Imitrex
[2017-11-25] MEDS ORDERED: LISINOPRIL40 M1 PO (17:38)
[2017-11-25] MEDS ORDERED: AZITHROMYCIN500 M3 PO (17:38)
[2017-11-25] MEDS ORDERED: HYDROCHLOROTHIA25 M1 PO (17:38)
[2017-11-25] MEDS ORDERED: PREDNISONE20 M1 PO (17:38)
--- NOTE | 2017-11-25 17:45 | Patient Discharge Instructions ---
Discharge Instructions General Discharge Information You were seen/treated for: copd hypertensive urgency Special Instructions: 1. please follow up with primary care doctor dr. stevenson in 1-2 weeks 2. please follow up with nursing techn dr. mccurdy in 1-2 weeks. 3. Please follow up with neurologist Dr. Mcgovern for headaches Diet Continue normal diet: No Recommended Diet: Heart Healthy Activity Full Activity/No Limits: Yes Acute Coronary Syndrome Inclusion Criteria At DC or during hospital stay patient has or had the following: ACS DIAGNOSIS No Discharge Core Measures Meds if any: Prescribed or Continued at Discharge Meds if any: NOT Prescribed or Continued at Discharge Congestive Heart Failure Inclusion Criteria At DC or during hospital stay patient has or had the following: CHF DIAGNOSIS No Discharge Core Measures Meds if any: Prescribed or Continued at Discharge Meds if any: NOT Prescribed or Continued at Discharge Cerebrovascular accident Inclusion Criteria At DC or during hospital stay patient has or had the following: CVA/TIA Diagnosis No Discharge Core Measures Meds if any: Prescribed or Continued at Discharge Meds if any: NOT Prescribed or Continued at Discharge Venous thromboembolism Inclusion Criteria VTE Diagnosis No VTE Type NONE VTE Confirmed by (Test) NONE Discharge Core Measures - Per Current guidelines, there needs to be overlap - treatment for the first 5 days of Warfarin therapy. - If discharged on Warfarin prior to 5 days of - overlap therapy, the patient will need to be - assessed for post discharge needs including - *Post discharge parental anticoagulation - *Warfarin and/or parental anticoagulation education - *Follow up date to check INR post discharge At least 5 days overlap therapy as Inpatient No Meds if any: Prescribed or Continued at Discharge Note: Overlap Therapy is Warfarin and Anticoagulant Meds if any: NOT Prescribed or Continued at Discharge
--- NOTE | 2017-11-25 17:51 | Discharge Summary ---
Hospital Course Allergies: Coded Allergies: sumatriptan (From IMITREX) (Intermediate, CARDIAC FAILURE 11/24/17) Discharge Instructions Medications at Discharge Discharge Medications: Continue taking these medications: Tiotropium [place] (Spiriva) 18 MCG CAP.W.DEV 1 Capsule Inhale through mouth DAILY Albuterol Sulfate (Proair Hfa) 90 MCG HFA.AER.AD 2 Puff Inhale through mouth As Directed as needed for RESP. Budesonide/Formoterol Fumarate (Symbicort 160-4.5 Mcg Inhaler) 160 MCG-4.5 MCG/ ACTUATION HFA.AER.AD 2 Puff Inhale through mouth Every Morning Lisinopril (Lisinopril) 40 MG TABLET 1 Tablet ORAL DAILY Hydrochlorothiazide (Hydrochlorothiazide) 25 MG TABLET 1 Tablet ORAL DAILY Methadone HCl (Methadone HCl) 10 MG/5 ML SOLUTION 80 Milligram ORAL DAILY Naproxen Sodium (Aleve) 220 MG CAPSULE 3-4 Tablet ORAL TWICE DAILY Ibuprofen (Wal-Profen) 200 MG TABLET 4 Tablet ORAL as needed for PAIN Cetirizine HCl (Zyrtec) 10 MG TABLET 1 Tablet ORAL DAILY Start taking the following new medications: Prednisone (Prednisone) 20 MG TABLET 1 Tablet ORAL SEE INSTRUCT Qty = 18 No Refills Instructions: 1. take 4 tabs for 1 day 2. 3 tabs/day for 2 days 3. 2 tabs/day for 2 days 4. 1 tab/day for 2 days then stop Azithromycin (Azithromycin) 500 MG TABLET 1 Tablet ORAL DAILY Qty = 3 No Refills Lisinopril (Lisinopril) 40 MG TABLET 1 Tablet ORAL DAILY Qty = 30 No Refills Hydrochlorothiazide (Hydrochlorothiazide) 25 MG TABLET 1 Tablet ORAL DAILY Qty = 30 No Refills
[2017-11-25 19:23] VITALS: BP 162/78
[2017-11-25 22:22] VITALS: BP 170/98
[2017-11-26 07:51] VITALS: BP 200/124
[2017-11-26 08:15] LABS: ABSOLUTE BASOPHIL COUNT 0.1 /CUMM (0.0-0.2); ABSOLUTE EOSINOPHIL COUNT 0 /CUMM (0.0-0.7); ABSOLUTE GRANULOCYTE CT 19.9 /CUMM (1.4-6.5); ABSOLUTE LYMPH COUNT 0.9 /CUMM (1.2-3.4); ABSOLUTE MONOCYTE COUNT 0.9 /CUMM (0.10-0.60); BASOPHIL % 0.3 % (0.0-2.0); EOSINOPHIL % 0.1 % (0-5); GRANULOCYTE % 91.6 % (42.2-75.2); HEMATOCRIT 53.2 % (42-52); MEAN CORPUSCULAR HGB 28.6 PG (27.0-31.0); MEAN CORPUSCULAR HGB CONC 32.6 G/DL (33.0-37.0); MEAN CORPUSCULAR VOLUME 87.6 FL (80.0-94.0); MEAN PLATELET VOLUME 8.5 FL (7.4-10.4); PLATELET COUNT 274 /CUMM (130-400); RBC DISTRIBUTION WIDTH 13.6 % (11.5-14.5); RED BLOOD CELL CT 6.07 /CUMM (4.70-6.10)
[2017-11-26 10:33] LABS: WHITE BLOOD CELL COUNT 21.8 /CUMM (4.8-10.8)
[2017-11-26 10:56] VITALS: BP 172/110
[2017-11-26] MEDS ORDERED: LISINOPRIL40 M1 PO (11:09)
--- NOTE | 2017-11-26 16:53 | PN- Att Addend ---
Attending Addendum Attending Brief Note patient seen/examined bedside. Patient here for hyprtension urgency asymptomatic and COPD exacerbation. Patient is chronic smoker and advised to quit smoking. Patient ecnouraged to be complaint with his antihypertensives. He c/o leg swelling with amlodipine so increased lisinpril to 40 bid and hydrochlorothiazide 25 mg daily. Patient also advised to follow up closely as outpatient with PCP and check Bp on regular basis. Patient might benefit from outpatient PFTs. Plan of care dwed patient and he agrees to plan.
== END 2017-11-26 12:35 | DRG 199 ==
LOC: ERH 18:52 → ERHI 21:12 → ENRESERV 11-25 17:06 → ENTRNSPT 11-25 19:57 → CMPTRNSPT 11-25 20:32 → 1NO 11-25 20:35 → ENPENDDIS 11-26 11:41 → 1NO 11-26 12:35
PROVIDERS: Physician Assistant; Student in an Organized Health Care Education/Training Program
DX: I16.0 Hypertensive urgency (principal); F11.20 Opioid dependence, uncomplicated; B18.2 Chronic viral hepatitis C; G43.909 Migraine, unspecified, not intractable, without status migrainosus; J44.1 Chronic obstructive pulmonary disease with (acute) exacerbation; F17.210 Nicotine dependence, cigarettes, uncomplicated
CPT/HCPCS: 1NSP; ERO; 36415; 71045; 80307; 81001; 82436; 87804; 87804-59; 93005; 93010; 94644; 96374; 96375; 96376; 99291; J0456; J1650; J2920; J2930; J3490; J7040; Q2036

== ENCOUNTER 2017-12-13 20:01 | Emergency (ER) | payer OTHER ==
[~2017-12-13] VITALS: Ht 170.2 cm; Wt 95.3 kg
[~2017-12-13 20:01] MED LIST: ALEVE220 M1 PO; AZITHROMYCIN500 M3 PO; HYDROCHLOROTHIA25 M1 PO; LISINOPRIL40 M1 PO; METHADONE10 MG/5 M2 PO; PREDNISONE20 M1 PO; PROAIR HFA8.5 GM INH; SPIRIVA18 MCG INH; SYMBICORT 16010.2 GM INH; WAL-PROFEN200 MG PO; ZYRTEC10 M3 PO
--- NOTE | 2017-12-13 22:34 | ED DYSPNEA/ASTHMA COMPLAINT ---
History of Present Illness General Chief Complaint: Dyspnea (COPD, CHF, Other) Stated Complaint: SOB/HAY/BP HIGH PER PT Source: patient, family, old records Exam Limitations: no limitations Vital Signs & Intake/Output Vital Signs & Intake/Output Vital Signs Date Time Temp Pulse Resp B/P B/P Pulse O2 O2 Flow FiO2 Mean Ox Delivery Rate 12/14 0139 98.6 78 20 178/110 96 Nasal 2.0L Cannula 12/14 0114 202/120 12/14 0114 202/120 12/14 0114 95 Nasal 2.0L Cannula 12/14 0030 98.3 80 20 202/120 Nasal 2.0L Cannula 12/13 2339 78 184/115 12/13 2325 84 12/13 2236 78 18 184/115 87 Room Air 12/13 2006 97.3 92 18 174/120 86 Room Air ED Intake and Output 12/14 0000 12/13 1200 Intake Total Output Total Balance Patient 210 lb Weight Weight Reported by Patient Measurement Method Allergies Coded Allergies: sumatriptan (From IMITREX) (Intermediate, CARDIAC FAILURE 11/24/17) Triage Note: PT FROM HOME C/O SOB, HAY, HTN. PT STATES 3X WEEKS AGO PT WAS D/C'D FROM [facility] FOR [facility] HOSPITAL STAY FOR A DX OF COPD EXACERBATION/HTN. PT STATES "THEY GAVE MY MEDICATION TO TAKE HOME FOR SOMTHING I GUESS TOO". PT STATES HAY FOR THE PAST 3X DAYS, PT CONSIST WITH TAKING 40MG LISINOPRIL PO TWICE A DAY. "I THINK THE HAY MAY BE FROM MY SINUSES TOO". PT STATES "I FEEL DIZZY AND BLURRY VISION SOMETIMES" PT DENIES BLURRY VISION CURRENTLY. PT PHOTOSENSITIVY. EYES ARE CLOSED IN TRIAGE. PTS BP ELEVATED IN TRIAGE MANUAL 174/120. PT STATES NAUSEA INTERMITTENTLY. PT AFEBRILE IN TRIAGE, FLU SHOT COMPLETED DURING PTS LAST STAY. PT STATES HE TOOK HIS FULL DOSE 80MG OF LISINOPRIL TODAY LAST 40MG DOSE AROUND 1800. Triage Nurses Notes Reviewed? yes HPI: Patient presents for evaluation of dyspnea and headache. Symptoms began roughly 2 days ago. Patient's blood pressure determinations of been 180s over 120s. Missed hydrochlorothiazide patient states that he missed his hydrochlorothiazide doses over the past 4 days and 1 lisinopril dose today. Patient was recently hospitalized at [facility] for a similar constellation of symptoms. Patient felt well at discharge but then a few days thereafter came down with some viral symptoms including fever and sore throat. These have resolved. Patient's headache is located bifrontally and feels like a pressure sensation. Patient also states that he becomes dyspneic with stair climbing at home. Patient denies chest pain palpitations or leg swelling. Patient denies any paresthesias or visual changes or changes in hearing acuity. (Beatriz NICHOLS,Madi Gleason) Reconcile Medications Albuterol Sulfate (Proair Hfa) 90 MCG HFA.AER.AD 2 PUF INH AD PRN RESP. ( Reported) Azithromycin 500 MG TABLET 1 TAB PO DAILY copd Budesonide/Formoterol Fumarate (Symbicort 160-4.5 Mcg Inhaler) 160 MCG-4.5 MCG/ ACTUATION HFA.AER.AD 2 PUF INH QAM RESP. (Reported) Cetirizine HCl (Zyrtec) 10 MG TABLET 1 TAB PO DAILY ALLERGIES (Reported) Hydrochlorothiazide 25 MG TABLET 1 TAB PO DAILY DIURETIC/BP (Reported) Hydrochlorothiazide 25 MG TABLET 1 TAB PO DAILY htn Hydrochlorothiazide 25 MG TABLET 1 TAB PO DAILY hypertension Ibuprofen (Wal-Profen) 200 MG TABLET 4 TAB PO PRN PAIN (Reported) Lisinopril (Zestril) 40 MG TABLET 1 TAB PO DAILY htn Lisinopril 40 MG TABLET 1 TAB PO BID HTN Methadone HCl 10 MG/5 ML SOLUTION 80 MG PO DAILY MENTAL HEALTH (Reported) Naproxen Sodium (Aleve) 220 MG CAPSULE 3-4 TAB PO BID PAIN (Reported) Prednisone 20 MG TABLET 1 TAB PO SEE INSTRUCT copd 1. take 4 tabs for 1 day 2. 3 tabs/day for 2 days 3. 2 tabs/day for 2 days 4. 1 tab/day for 2 days then stop Tiotropium [place] (Spiriva) 18 MCG CAP.W.DEV 1 CAP INH DAILY RESP. (Reported ) (Nayely NICHOLS,Cabrera Hsieh) Past History Travel History Traveled to [place] past 21 day No Medical History Any Pertinent Medical History? see below for history Neurological: migraine EENT: NONE Cardiovascular: hypertension Respiratory: bronchitis, COPD Gastrointestinal: NONE Hepatic: NONE Renal: NONE Musculoskeletal: NONE Psychiatric: IV drug abuse Endocrine: NONE History of MRSA: No History of VRE: No History of CDIFF: No Surgical History Surgical History: non-contributory Psychosocial History What is your primary language Polish Tobacco Use: Current Daily Use Daily Tobacco Use Amount/Type: => 5 Cigarettes daily ETOH Use: denies use Illicit Drug Use: denies illicit drug use Family History Hx Contributory? No (Beatriz NICHOLS,Madi Gleason) Review of Systems Review of Systems Constitutional: Reports: see HPI. EENTM: Reports: see HPI. Respiratory: Reports: see HPI. Cardiovascular: Reports: no symptoms. GI: Reports: no symptoms. Genitourinary: Reports: no symptoms. Musculoskeletal: Reports: no symptoms. Skin: Reports: no symptoms. Neurological/Psychological: Reports: see HPI. Hematologic/Endocrine: Reports: no symptoms. Immunologic/Allergic: Reports: no symptoms. All Other Systems: Reviewed and Negative (Beatriz NICHOLS,Madi Gleason) Physical Exam Physical Exam Respiratory: SEE BELOW Comments: Gen.: Well-nourished, well-developed, no acute respiratory distress.Overweight.. Head: Normocephalic, atraumatic. Eyes: Normal inspection bilaterally Ears: Normal inspection bilaterally Nose: Normal inspection Throat/mouth : Moist mucosa Neck: Supple, full range of motion, no goiter Heart: Regular rate and rhythm, no murmurs rubs or gallops Lungs: Decreased air entry bilaterally with occasional end expiratory wheezes over the right chest Chest: Nontender Back: Normal range of motion Abdomen: Soft, nontender, nondistended, normal bowel sounds Extremities: Normal range of motion grossly, equal radial pulses, no cyanosis clubbing or edema Neurologic: Cranial nerves grossly intact, speech is clear Skin: warm and dry Psychiatric: Calm, cooperative, no apparent delusions or hallucinations Core Measures ACS in differential dx? No CVA/TIA Diagnosis No Sepsis Present: No Sepsis Focused Exam Completed? 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 (Beatriz NICHOLS,Madi Gleason) Departure Departure Disposition: STILL A PATIENT Condition: Stable Referrals: Patient Has No Primary Care Dr (PCP/Family) Departure Forms: Customer Survey General Discharge Information (Beatriz NICHOLS,Madi Gleason) Departure Clinical Impression Primary Impression: Uncontrolled hypertension Secondary Impressions: Headache Prescriptions: Current Visit Scripts Lisinopril (Zestril) 1 TAB PO DAILY #30 TAB Hydrochlorothiazide 1 TAB PO DAILY #30 TAB Comments 12/14/17, 2:02am.... pt feeling well... sbp improved. he would like to go home. BP refills sent to his pharmacy. pt feels comfortable going home. (Nayely NICHOLS,Cabrera Hsieh) Critical Care Note Critical Care Note Critical Care Time: non-applicable (Beatriz NICHOLS,Madi Gleason)
--- NOTE | 2017-12-13 23:08 | RADIOLOGY REPORT ---
EXAMINATION: CHEST 2 VIEWS CLINICAL INFORMATION: Left-sided wheezing. Dyspnea. COMPARISON: 11/24/2017. TECHNIQUE: PA and lateral views of the chest were obtained. FINDINGS: The cardiac silhouette is not enlarged. The mediastinal and hilar contours are unremarkable. There are neither pleural effusions nor pneumothoraces. There are no consolidations. The lungs are hyperinflated. The osseous structures are unremarkable. IMPRESSION: No evidence for acute disease. Lung hyperinflation.
[2017-12-14] MEDS ORDERED: HYDROCHLOROTHIA25 M1 PO (00:40)
[2017-12-14] MEDS ORDERED: ZESTRIL40 M1 PO (00:40)
[2017-12-14 02:06] VITALS: BP 178/96
== END 2017-12-14 02:07 ==
LOC: ERH 20:01
DX: I10 Essential (primary) hypertension (principal); R51 Headache
CPT/HCPCS: 1263; 71046; 93005; 93010; 96372; J2550

== ENCOUNTER 2018-01-05 12:29 | Inpatient (IN) | payer OTHER ==
[~2018-01-05] VITALS: Ht 172.7 cm; Wt 99.8 kg
[~2018-01-05 12:29] MED LIST changes: +ZESTRIL40 M1 PO
--- NOTE | 2018-01-05 12:36 | ED GENERAL ADULT ---
History of Present Illness General Chief Complaint: General Adult Stated Complaint: SOB/HIGH BLOOD PRESSURE PER PT Source: patient Exam Limitations: no limitations Vital Signs & Intake/Output Vital Signs & Intake/Output Vital Signs Date Time Temp Pulse Resp B/P B/P Pulse O2 O2 Flow FiO2 Mean Ox Delivery Rate 01/05 2009 75 177/80 01/05 1923 87 93 01/05 1909 95 BIPAP 35% 01/05 190 97.1 75 25 177/80 95 BIPAP 35% 01/05 1821 74 90 01/05 1646 97.7 78 18 177/109 90 Nasal 2.5L Cannula 01/05 1628 73 95 01/05 1524 98.3 82 20 163/98 98 Venti Mask 45% 01/05 1523 79 95 01/05 1438 92 Venti Mask 45% 01/05 1307 70 Nasal 4.0L Cannula 01/05 1247 98.4 96 18 136/93 61 Room Air 01/05/18 12:35 PM 42-year-old man presents to the emergency department complaining of difficulty breathing and high blood pressure. He has a past medical history of severe COPD on Home O2. His Oxygen Saturation in the Waiting Room Is 55%. He Is Awake Alert and Oriented 3 Has Poor Air Entry Bilaterally. Allergies Coded Allergies: sumatriptan (From IMITREX) (Intermediate, CARDIAC FAILURE 11/24/17) Reconcile Medications Albuterol Sulfate (Proair Hfa) 90 MCG HFA.AER.AD 2 PUF INH AD PRN RESP. ( Reported) Budesonide/Formoterol Fumarate (Symbicort 160-4.5 Mcg Inhaler) 160 MCG-4.5 MCG/ ACTUATION HFA.AER.AD 2 PUF INH QAM RESP. (Reported) Cetirizine HCl (Zyrtec) 10 MG TABLET 1 TAB PO DAILY ALLERGIES (Reported) Hydrochlorothiazide 25 MG TABLET 1 TAB PO DAILY htn Ibuprofen (Wal-Profen) 200 MG TABLET 4 TAB PO PRN PAIN (Reported) Lisinopril 20 MG TABLET 1 TAB PO BID Hypertension Methadone HCl 10 MG/5 ML SOLUTION 80 MG PO DAILY MENTAL HEALTH (Reported) Naproxen Sodium (Aleve) 220 MG CAPSULE 3-4 TAB PO BID PAIN (Reported) Tiotropium Lockwood (Spiriva) 18 MCG CAP.W.DEV 1 CAP INH DAILY RESP. (Reported ) Triage Nurses Notes Reviewed? yes Onset: Abrupt Duration: day(s): Timing: recent history HPI: 01/05/18 12:35 PM 42-year-old man presents to the emergency department complaining of difficulty breathing and high blood pressure. He has a past medical history of severe COPD on Home O2. His Oxygen Saturation in the Waiting Room Is 55%. He Is Awake Alert and Oriented 3, Has Poor Air Entry Bilaterally. Past History Travel History Traveled to [place] past 21 day No Medical History Any Pertinent Medical History? see below for history Neurological: migraine EENT: NONE Cardiovascular: hypertension Respiratory: bronchitis, COPD Gastrointestinal: NONE Hepatic: NONE Renal: NONE Musculoskeletal: NONE Psychiatric: IV drug abuse Endocrine: NONE History of MRSA: No History of VRE: No History of CDIFF: No Surgical History Surgical History: non-contributory Psychosocial History What is your primary language [place]an Family History Hx Contributory? No Review of Systems Review of Systems Constitutional: Denies: fever. EENTM: Denies: visual changes. Respiratory: Reports: cough, short of breath. Cardiovascular: Denies: chest pain. GI: Denies: abdominal pain. Genitourinary: Reports: no symptoms. Musculoskeletal: Reports: no symptoms. Skin: Reports: no symptoms. Neurological/Psychological: Reports: no symptoms. Hematologic/Endocrine: Reports: no symptoms. Immunologic/Allergic: Reports: no symptoms. Physical Exam Physical Exam General Appearance: alert, awake, anxious, moderate distress Head: atraumatic, normal appearance Eyes: Bilateral: normal appearance, PERRL, EOMI. Ears, Nose, Throat: normal pharynx, normal ENT inspection Neck: normal inspection, supple Respiratory: accessory muscle use, wheezing Cardiovascular: regular rate/rhythm Peripheral Pulses: 4+ radial (R), 4+ radial (L) Gastrointestinal: soft, non-tender Back: normal range of motion Extremities: no edema Neurologic/Psych: no motor/sensory deficits, awake, alert, oriented x 3 Skin: intact Core Measures ACS in differential dx? No CVA/TIA Diagnosis: No Sepsis Present: No Sepsis Focused Exam Completed? No Progress Differential Diagnoses I considered the following diagnoses in my evaluation of the patient: [Pneumonia , COPD exacerbation, asthma exacerbation, bronchitis, pneumothorax] Plan of Care: Orders Procedure Date/time Status CBC WITHOUT DIFFERENTIAL 01/06 600 Active BASIC ELECTROLYTES PLUS BUN&CR 01/06 600 Active Heart Healthy Diet 01/05 D Active Vital Signs 01/05 1909 Active Teach/Educate 01/05 1909 Active Pain Treatment and Response 01/05 1909 Active Nutritional Intake, Monitor 01/05 1909 Active Isolation 01/05 1909 Active Intake & Output 01/05 1909 Active Patient Care Conference 01/05 1909 Active Activity/Ambulation 01/05 1909 Active Pathway - chart 01/05 1854 Active RAPID VIRAL INFLUENZA A 01/05 1853 Active SPECIMEN TO BE OBTAINED 01/05 1852 Active STREP PNEUMO URINARY ANTIGEN 01/05 1852 Active LEGIONELLA URINARY ANTIGEN 01/05 1852 Active LOWER RESPIRATORY CULTURE 01/05 1852 Active BIPAP 01/05 1620 Complete TRC EVALUATION (GEN) 01/05 1546 Active Pathway - chart 01/05 1546 Active House Staff 01/05 1546 Active BIPAP 01/05 1522 Complete ARTERIAL BLOOD GAS (GEN) 01/05 1454 Complete Patient Data 01/05 1436 Active Admit to inpatient 01/05 1433 Active Vital Signs 01/05 1433 Active Code Status 01/05 1433 Active Add-on Test (ER Only) 01/05 1428 Active EKG 01/05 1428 Active Add-on Test (ER Only) 01/05 1425 Active Intake & Output 01/05 1403 Active TROPONIN LEVEL 01/05 1249 Complete D-DIMER 01/05 1249 Complete OXYGEN SETUP (GEN) 01/05 1239 Active Saline Lock 01/05 1239 Active COMPREHENSIVE METABOLIC PANEL 01/05 1239 Complete CBC WITHOUT DIFFERENTIAL 01/05 1239 Complete VTE Mechanical Prophylaxis 01/05 UNK Active Intake & Output 01/05 UNK Complete Current Medications Sig/Ruben Start time Last Medication Dose Stop Time Status Admin Azithromycin 500 MG DAILY 01/06 1000 AC (Zithromax) Dextrose/Water 250 ML (D5W) Budesonide/ 2 PUF QAM 01/06 1000 AC Formoterol Fumarate (Symbicort) Hydrochlorothiazide 25 MG DAILY 01/06 1000 AC (Hydrodiuril) Loratadine 10 MG DAILY 01/06 1000 AC (Claritin) Methadone HCl 80 MG DAILY 01/06 1000 AC (Dolophine) Tiotropium [place] 1 PUF DAILY 01/06 1000 AC (Spiriva) Lisinopril 20 MG BID 01/05 2200 AC 01/05 (Prinivil) 2009 Methylprednisolone 40 MG Q8 02/15 2200 AC (Solumedrol) Acetaminophen 650 MG Q6P PRN 01/05 1900 AC (Tylenol) Acetaminophen 1,000 MG Q6P PRN 01/05 190 AC (Ofirmev) Laboratory Tests 01/05/18 1505: pH 7.26 *L, pCO2 84 *H, pO2 82, HCO3 36 H, ABG O2 Sat (Measured) 95.0 L, P-50 (Temp Corrected) YES, Carboxyhemoglobin 5.7 *H, O2 Concentration % 45%, Temperature 98.4, O2 Delivery Method VM, Phlebotomy Draw Site RIGHT RADIAL 01/05/18 1249: Anion Gap 13, Estimated GFR > 60, BUN/Creatinine Ratio 41.3 H, Glucose 112 H, Calcium 9.7, Total Bilirubin 0.9, AST 32, ALT 29, Alkaline Phosphatase 86, Troponin I 0.04, Total Protein 7.7, Albumin 4.5, Globulin 3.2, Albumin/Globulin Ratio 1.4, D-Dimer High Sensitivty < 200, CBC w Diff NO MAN DIFF REQ, RBC 5.93, MCV 87.1, MCH 28.0, MCHC 32.1 L, RDW 15.1 H, MPV 7.3 L, Gran % 78.5 H, Lymphocytes % 11.1 L, Monocytes % 9.5 H, Eosinophils % 0.2, Basophils % 0.7, Absolute Granulocytes 8.6 H, Absolute Lymphocytes 1.2, Absolute Monocytes 1.0 H, Absolute Eosinophils 0, Absolute Basophils 0.1 Microbiology 01/05 1853 NASOPHARYN: Influenza Virus A & B Rapid Smear - COLB 01/05 1852 URINE ROUT: Legionella Antigen - COLB 01/05 1852 URINE ROUT: Streptococcus pneumoniae Antigen (M - COLB 01/05 1852 LOWER RESP: Respiratory Culture - COLB 01/05 1852 LOWER RESP: Gram Stain - COLB Initial ED EKG: NSR, nonspecific ST T wave chg Comments: Chest x-ray negative Patient placed on oxygen, albuterol and Atrovent given. IV steroids given. He was admitted to the hospital for further care. Departure Departure Disposition: STILL A PATIENT Condition: Stable Clinical Impression Primary Impression: Respiratory failure Secondary Impressions: Asthma, Hypoxia Referrals: Patient Has No Primary Care Dr (PCP/Family) Departure Forms: Customer Survey General Discharge Information Prescriptions: Current Visit Scripts Lisinopril 1 TAB PO BID #30 TAB Comments 01/05/18 2:32 PM Patient with improved respirations still wheezing. Oxygen saturation is greater than 90 on Ventimask. He is being admitted to the hospital for further care Admission Note Spoke With: Carla Cornejo MD Documentation of Exam: Documentation of any treatments & extenuating circumstances including Concerns Regarding Discharge (functional status, medication knowledge or non-compliance, living conditions, etc.) that warrant an admission rather than observation: [The patient needs admission for IV steroids, albuterol and Atrovent treatments every 4 hours, consider pulmonary consultation,] PATIENT: GORDON HAGEN PRESENT AGE: 42 PATIENT ACCOUNT NO: [id number] : 75 LOCATION: [facility] ORDERING PHYSICIAN: Madi Stapleton DO SERVICE DATE: 01/05/18-1238 EXAM TYPE: RAD - XRY-PORTABLE CHEST XRAY EXAMINATION: XR PORTABLE CHEST CLINICAL INFORMATION: Shortness of breath COMPARISON: 12/13/2017 and 11/24/2017 TECHNIQUE: Portable frontal view of the chest was obtained. FINDINGS: Lungs are clear. No focal consolidation or mass. Normal pulmonary vascularity. No pleural effusion or pneumothorax. Normal heart size. Regional skeleton intact. IMPRESSION: No acute pulmonary disease. DICTATED BY: Dionisio Gregorio MD DATE/TIME DICTATED:01/05/181308 [employer] SUPERVISOR:[id number] DATE/TIME TRANSCRIBED:01/05/181308 CONFIDENTIAL, DO NOT COPY WITHOUT APPROPRIATE AUTHORIZATION. <Electronically signed in Other Vendor System> SIGNED BY: Dionisio Gregorio MD [id number] Critical Care Note Critical Care Note Critical Care Time: 30-74 min
[2018-01-05 13:02] LABS: ABSOLUTE BASOPHIL COUNT 0.1 /CUMM (0.0-0.2); ABSOLUTE EOSINOPHIL COUNT 0 /CUMM (0.0-0.7); ABSOLUTE GRANULOCYTE CT 8.6 /CUMM (1.4-6.5); ABSOLUTE LYMPH COUNT 1.2 /CUMM (1.2-3.4); BASOPHIL % 0.7 % (0.0-2.0); EOSINOPHIL % 0.2 % (0-5); GRANULOCYTE % 78.5 % (42.2-75.2); HEMATOCRIT 51.7 % (42-52); MEAN CORPUSCULAR HGB CONC 32.1 G/DL (33.0-37.0); MEAN CORPUSCULAR VOLUME 87.1 FL (80.0-94.0); MEAN PLATELET VOLUME 7.3 FL (7.4-10.4); PLATELET COUNT 284 /CUMM (130-400); RBC DISTRIBUTION WIDTH 15.1 % (11.5-14.5); RED BLOOD CELL CT 5.93 /CUMM (4.70-6.10)
--- NOTE | 2018-01-05 13:16 | RADIOLOGY REPORT ---
EXAMINATION: XR PORTABLE CHEST CLINICAL INFORMATION: Shortness of breath COMPARISON: 12/13/2017 and 11/24/2017 TECHNIQUE: Portable frontal view of the chest was obtained. FINDINGS: Lungs are clear. No focal consolidation or mass. Normal pulmonary vascularity. No pleural effusion or pneumothorax. Normal heart size. Regional skeleton intact. IMPRESSION: No acute pulmonary disease.
--- NOTE | 2018-01-05 15:19 | History & Physical ---
Rebeca Pendleton 01/05/18 1518: General Information and HPI MD Statement: I have seen and personally examined GORDON WELLS and documented this H&P. The patient is a 42 year old M who presented with a patient stated chief complaint of [Dyspnea]. Source of Information: patient, family Exam Limitations: no limitations History of Present Illness: Patient is a 42-year-old male with past medical history of hypertension diagnosed 10 years ago, migraines not currently on any medications, asthma and COPD on home oxygen 2-2.5L intermittently, history of IV drug use last used heroin 1 year prior to this admission currently on methadone, history of hepatitis C s/p Harvoni treatment, carpal tunnel syndrome, history of mutliple admissions over the past year for respiratory failure requiring intubation and ICU admission presents this admission with chief complaint of trouble breathing, weakness on/off for the last month but worsening for the last two days with 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 Patient visited ER on 12/13 for similar complaints and received TRC/Neb in the ER but was not admitted. Patient had not worked for the week, denied sick contact, endorsed intermittent coughing but complained of too weak too cough, and some fluid sounds in his lungs, mildly productive. Patien denied fever, muscle acheness, or dizziness but admitted intermittent headache (unknown if related to BP but BP was high in 170s last night), along with intermittent vision change with hard time reading patient denied ab pain, or urine/bowel movement abnormalities During our interaction, patient appeared lethagic. Patient endorsed drowsiness while driving, had CPAP at home but did not use it on daily basis. Patient had not setup his PCP after moving to [place]. Allergies/Medications Allergies: Coded Allergies: sumatriptan (From IMITREX) (Intermediate, CARDIAC FAILURE 11/24/17) Past History Travel History Traveled to [place] past 21 day No Medical History Neurological: migraine EENT: NONE Cardiovascular: hypertension Respiratory: bronchitis, COPD Gastrointestinal: NONE Hepatic: NONE Renal: NONE Musculoskeletal: NONE Psychiatric: IV drug abuse Endocrine: NONE History of MRSA: No History of VRE: No History of CDIFF: No Surgical History Surgical History: non-contributory Past Family/Social History Psychosocial History Smoking Status: Current Some Day Smoker (5-10 cigs/day, cutting down) ETOH Use: occasional use Illicit Drug Use: denies illicit drug use Review of Systems Review of Systems Constitutional: Reports: see HPI. Exam & Diagnostic Data Last 24 Hrs of Vital Signs/I&O Vital Signs Date Time Temp Pulse Resp B/P B/P Pulse O2 O2 Flow FiO2 Mean Ox Delivery Rate 01/05 1646 97.7 78 18 177/109 90 Nasal 2.5L Cannula 01/05 1628 73 95 01/05 1524 98.3 82 20 163/98 98 Venti Mask 45% 01/05 1523 79 95 01/05 1438 92 Venti Mask 45% 01/05 1307 70 Nasal 4.0L Cannula 01/05 1247 98.4 96 18 136/93 61 Room Air Intake & Output 01/05 1600 01/05 0800 01/05 0000 Intake Total 0 Output Total Balance 0 Intake, Oral 0 Patient 95.254 kg Weight Weight Reported by Patient Measurement Method Physical Exam General Appearance Alert, Oriented X3, Mild Distress, Lethargic Skin No Significant Lesion Skin Temp/Moisture Exam: Warm/Dry Sepsis Skin Exam (color): Normal for Ethnicity HEENT Atraumatic, PERRLA Assessment/Plan Assessment: Mr. Wells is a 42-year-old male with past medical history of hypertension diagnosed 10 years ago, migraines not currently on any medications, asthma and COPD on home oxygen 2-2.5L intermittently, history of IV drug use last used heroin 1 year prior to this admission currently on methadone, history of hepatitis C s/p Harvoni treatment, carpal tunnel syndrome, history of mutliple admissions over the past year for respiratory failure requiring intubation and ICU admission presented this admission with chief complaint of trouble breathing , weakness on/off for the last month but worsening for the last two days with 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 Patient visited ER on 12/13 for similar complaints and received TRC/Neb in the ER but was not admitted. Patient had not worked for the week, denied sick contact, endorsed intermittent coughing but complained of too weak too cough, and some fluid sounds in his lungs, mildly productive. Patien denied fever, muscle acheness, or dizziness but admitted intermittent headache (unknown if related to BP but BP was high in 170s last night), along with intermittent vision change with hard time reading. ER Course: Vitals: Stable, BP 163/98, satting 45% under ventimask, then had BiPAP x 1hr, then 2.5LNC satting >90% Physical exam as above -CBC: WBC 11.0 otherwise unremarkable -BMP: CO2 36, Cl 92, otherwise unremarkable -Misc: ABG 7.26/84/82/36 w/ 45% VM, Ddimer -ve -CXR: no acute pulmonary disease -EKG: Normal sinus rhythm without significant ST-T abnormalities. -Interventions in ER: TRC/Neb + Solumedrol x1 Assessment: Mr. Wells is a 42-year-old male with past medical history of hypertension diagnosed 10 years ago, migraines not currently on any medications, asthma and COPD on home oxygen 2-2.5L intermittently, history of IV drug use last used heroin 1 year prior to this admission currently on methadone, history of hepatitis C s/p Harvoni treatment, carpal tunnel syndrome, history of mutliple admissions over the past year for respiratory failure requiring intubation and ICU admission presented this admission with chief complaint of trouble breathing , weakness on/off for the last month but worsening for the last two days with 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 Patient's clinical picture resembled COPD exacerbation with hypercapnic respiratory failure, without active infection on imaging, and slightly elevated WBC likely from use of steroids. Patient may still have intermittend hypertension associated with migraine/vision change however not significantly active during admission. Problem list #COPD Exacerbation #Hypertension #History of IV drug use on methadone, hepatitis C s/p Harvoni treatment, carpal tunnel syndrome Plan - Admit to Gen Med - O2, TRCNeb/Symbicort/Spiriva, ensure BiPAP use - Started IV Solumedrol 40mg q8, Zithromax 500mg x 5 days, currently day 1 - Continued home meds including Lisinopril, Claritin, Methadone 80mg qd, HCTZ 25mg qd, - Pending Sputum culture/urine Ag/strep DVT prophylaxis Lovenox + ALPS Heart Healthy Diet Full Code As Ranked By This Provider Problem List: 1. Hypoxia 2. Respiratory failure 3. Uncontrolled hypertension 4. COPD exacerbation 5. Headache Core Measures/Misc (08/07) Acute Coronary Syndrome ACS Diagnosis: No Congestive Heart Failure Congestive Heart Failure Diagnosis No Cerebrovascular Accident CVA/TIA Diagnosis: No VTE (View Protocol) VTE Risk Factors Age>40 No Mechanical VTE Prophylaxis d/t N/A MechProphylax Ordered No VTE Pharm Prophylaxis d/t NA PharmProphylax ordered Sepsis (View protocol) Sepsis Present: No Carla Cronejo MD 01/05/18 1523: Attending Review Statement Attending Statement Attending MD Statement: examined this patient, discuss w/resident/PA/POPPED CORN OVEN ATTENDANT, agreed w/resident/PA/POPPED CORN OVEN ATTENDANT, reviewed EMR data (avail), discussed with nursing, discussed with case mgmt, reviewed images, amended to note Attending Assessment/Plan: 42-year-old male with past medical history significant for COPD, when necessary oxygen use, history of LEONILA and uses CPAP, hypertension, on chronic methadone due to history of addiction, migraine headaches who presented with increasing shortness of breath, coughing and feeling sick. Patient claims that he has been getting sick off and on from last few weeks. Yesterday he felt so much worse that he went to the walk-in clinic. He was not looking good at all before he was told to come to the emergency room. He waited overnight and this morning with his significant other came, they brought him to the emergency room. Patient was found to be ready hypoxic with O2 sats in 60s. He was put on Ventimask. He himself feels short of breath and has wheezing all over. He continues to smoke. Patient was also sleepy when I started to interview him therefore we obtained a blood gas which did show that he was severely hypercarbic. Patient was recently admitted last month with hypertensive urgency and CP exacerbation to [facility]. He does complain of coughing with yellowish sputum. Vital Signs Date Time Temp Pulse Resp B/P B/P Pulse O2 O2 Flow FiO2 Mean Ox Delivery Rate 01/05 1646 97.7 78 18 177/109 90 Nasal 2.5L Cannula 01/05 1628 73 95 01/05 1524 98.3 82 20 163/98 98 Venti Mask 45% 01/05 1523 79 95 01/05 1438 92 Venti Mask 45% 01/05 1307 70 Nasal 4.0L Cannula 01/05 1247 98.4 96 18 136/93 61 Room Air On exam; Patient was sleepy but arousable and then was able to participate in conversation. cv; s1,s2, rrr resp; junky bs all over with b/l wheeze. abd; soft, nt, bs+ ext; trace edema. Laboratory Tests 01/05 01/05 1505 1249 Blood Gas pH (7.35 - 7.45 PH) 7.26 *L pCO2 (35 - 45 TORR) 84 *H pO2 (80 - 100 TORR) 82 HCO3 (21 - 28 MEQ/L) 36 H ABG O2 Sat (Measured) (>96.0 %) 95.0 L P-50 (Temp Corrected) YES Carboxyhemoglobin (1.5 - 5.0 %) 5.7 *H O2 Concentration % 45% Temperature (97.0 - 100.0 FARH) 98.4 O2 Delivery Method VM Chemistry Sodium (137 - 145 mmol/L) 141 Potassium (3.5 - 5.1 mmol/L) 5.1 Chloride (98 - 107 mmol/L) 92 L Carbon Dioxide (22 - 30 mmol/L) 36 H Anion Gap (5 - 16) 13 BUN (9 - 20 mg/dL) 33 H Creatinine (0.7 - 1.2 mg/dL) 0.8 Estimated GFR (>60 ml/min) > 60 BUN/Creatinine Ratio (7 - 25 %) 41.3 H Glucose (65 - 99 mg/dL) 112 H Calcium (8.4 - 10.2 mg/dL) 9.7 Total Bilirubin (0.2 - 1.3 mg/dL) 0.9 AST (17 - 59 U/L) 32 ALT (21 - 72 U/L) 29 Alkaline Phosphatase (< 127 U/L) 86 Troponin I (<0.11 ng/ml) 0.04 Total Protein (6.3 - 8.2 g/dL) 7.7 Albumin (3.5 - 5.0 g/dL) 4.5 Globulin (1.9 - 4.2 gm/dL) 3.2 Albumin/Globulin Ratio (1.1 - 2.2 %) 1.4 Coagulation D-Dimer High Sensitivty (0 - 243 ng/ml) < 200 Hematology CBC w Diff NO MAN DIFF REQ WBC (4.8 - 10.8 /CUMM) 11.0 H RBC (4.70 - 6.10 /CUMM) 5.93 Hgb (14.0 - 18.0 G/DL) 16.6 Hct (42 - 52 %) 51.7 MCV (80.0 - 94.0 FL) 87.1 MCH (27.0 - 31.0 PG) 28.0 MCHC (33.0 - 37.0 G/DL) 32.1 L RDW (11.5 - 14.5 %) 15.1 H Plt Count (130 - 400 /CUMM) 284 MPV (7.4 - 10.4 FL) 7.3 L Gran % (42.2 - 75.2 %) 78.5 H Lymphocytes % (20.5 - 51.1 %) 11.1 L Monocytes % (1.7 - 9.3 %) 9.5 H Eosinophils % (0 - 5 %) 0.2 Basophils % (0.0 - 2.0 %) 0.7 Absolute Granulocytes (1.4 - 6.5 /CUMM) 8.6 H Absolute Lymphocytes (1.2 - 3.4 /CUMM) 1.2 Absolute Monocytes (0.10 - 0.60 /CUMM) 1.0 H Absolute Eosinophils (0.0 - 0.7 /CUMM) 0 Absolute Basophils (0.0 - 0.2 /CUMM) 0.1 Miscellaneous Phlebotomy Draw Site RIGHT RADIAL CXR: IMPRESSION: No acute pulmonary disease. EKG>> sinus A/P; 42-year-old male with past medical history significant for COPD, when necessary oxygen use, history of LEONILA and uses CPAP, hypertension, on chronic methadone due to history of addiction, migraine headaches, will be admitted with acute hypercapnic respiratory failure. Patient has acute COPD exacerbation as well as acute bronchitis. Patient admitted to medicine. He will be put on BiPAP for hypercarbia. We should repeat his ABG in couple of hours. Patient will be treated with IV steroids, TRC nebs, inhalers as well as azithromycin. Please make sure that QTC is normal. Please continue antihypertensive Medications. Will check sputum cultures, urine Legionella and strep antigen. Flu swab is negative. Patient's d-dimer is negative. DVT prophylaxis: Lovenox Full code. Adam Galindo MD 01/05/18 1541: General Information and HPI Allergies/Medications Home Med list Albuterol Sulfate (Proair Hfa) 90 MCG HFA.AER.AD 2 PUF INH AD PRN RESP. ( Reported) Budesonide/Formoterol Fumarate (Symbicort 160-4.5 Mcg Inhaler) 160 MCG-4.5 MCG/ ACTUATION HFA.AER.AD 2 PUF INH QAM RESP. (Reported) Cetirizine HCl (Zyrtec) 10 MG TABLET 1 TAB PO DAILY ALLERGIES (Reported) Hydrochlorothiazide 25 MG TABLET 1 TAB PO DAILY htn Ibuprofen (Wal-Profen) 200 MG TABLET 4 TAB PO PRN PAIN (Reported) Lisinopril 20 MG TABLET 1 TAB PO BID Hypertension Methadone HCl 10 MG/5 ML SOLUTION 80 MG PO DAILY MENTAL HEALTH (Reported) Naproxen Sodium (Aleve) 220 MG CAPSULE 3-4 TAB PO BID PAIN (Reported) Tiotropium [place] (Spiriva) 18 MCG CAP.W.DEV 1 CAP INH DAILY RESP. (Reported ) Resident Review Statement Resident Statement: examined this patient, discussed with intern retail, agreed with intern retail, discussed with family, reviewed EMR data (avail), discussed with nursing , discussed with case mgmt, reviewed images, amended to note Other Findings: 42 yo M with pmh of hypertension diagnosed 10 years ago, migraines not currently on any medications, asthma, obesity, COPD on home oxygen 2-2.5L intermittently, obstructive sleep apnea noncompliant on CPAP, history of IV drug use last used heroin 1 year prior to this admission currently on methadone, history of hepatitis C s/p Harvoni treatment, carpal tunnel syndrome, history of mutliple admissions over the past year for respiratory failure requiring intubation and ICU admission, presented to the emergency department first on December 13 for shortness of breath, was evaluated and treated with respiratory therapy as well and discharged, and after a week, started feeling weak, shortness of breath to the point where he could not climb up one flight of stairs, which worsened in the past 2 days and also had started coughing which made him present to the emergency department. Patient denied any chest pain, palpitation, dizziness, fever, chills, nausea, vomiting, diarrhea or constipation but admitted to intermittent headache which he attributed to his migraine for which he used to take 3-4 pills of Aleve almost daily. Patient mentioned that he has oxygen concentrator at home and was using it intermittently without any medical guidance in the past 1 month. Before that, he did not used to administer oxygen during daytime. Of note, patient was very sleepy/drowsy during the time of interview and much of the information was provided by his fiance who was also present in the room. He also admitted that recently she has been more sleepy, even while he was driving and does not feel refreshed after waking up from sleep. ABG done in the emergency department showed he was hypoxic with hypercarbic and in respiratory failure thus was put on BiPAP which he continued only for 1 hour when we went to interview him. Physical examination and labs as mentioned above. He is being admitted in the general medical floor for the management of following issues: #Acute hypoxic hypercarbic respiratory failure, secondary to COPD exacerbation, acute bronchitis, likely obesity hypoventilation syndrome Patient's clinical picture seems to be an acute exacerbation of COPD with underlying LEONILA/obesity hypoventilation syndrome, further precipitated by acute bronchitis. We will admit him in general medical floor, treat bronchitis with azithromycin, and his respiratory distress with BiPAP, TRC/neb, Symbicort, Spiriva, and IV Solu-Medrol 40 mg every 8 hrs. we are sending sputum culture, urine Legionella and strep antigens, and also check for influenza. #We will continue his home medications including for hypertension and methadone 80 mg daily. DVT prophylaxis with Lovenox Heart healthy diet Full code.
[2018-01-05] MEDS ORDERED: LISINOPRIL20 M1 PO (17:59)
[2018-01-05 19:09] VITALS: BP 177/80
[2018-01-05 22:05] VITALS: BP 210/110
--- NOTE | 2018-01-05 22:05 | Event Note ---
Event Note Event Note: Was placed by the nurse because the patient has blood pressure of 210/110 , I examined the patient, he denied any chest pain, headache, palpitation, focal weakness, physical exam was normal. Patient was given amlodipine 5 mg once, NIH stroke sliding scale was added to monitor for the development of any focal weakness. And 1 hour blood pressure decreased to 190/110, later on his blood pressure increased to 210/110 again, he was given another dose of amlodipine 5 mg We'll follow up on blood pressure F and does not drop patient will be transferred to unit for hypertensive urgency Follow up: blood presssure dropped to 190/110 after second dose of Amlodipine 5 mg pt was given morning dose of Lisinopril at 5 Am AT 7 AM BP 154/112 Discussed with resident Fuentes.
[2018-01-06 00:29] VITALS: BP 190/110
[2018-01-06 02:30] VITALS: BP 210/110
[2018-01-06 04:28] VITALS: BP 190/110
[2018-01-06 06:18] VITALS: BP 188/110
[2018-01-06 07:10] VITALS: BP 154/112
[2018-01-06 07:56] LABS: ABSOLUTE BASOPHIL COUNT 0 /CUMM (0.0-0.2); ABSOLUTE EOSINOPHIL COUNT 0 /CUMM (0.0-0.7); ABSOLUTE GRANULOCYTE CT 9.9 /CUMM (1.4-6.5); ABSOLUTE LYMPH COUNT 0.6 /CUMM (1.2-3.4); ABSOLUTE MONOCYTE COUNT 0.2 /CUMM (0.10-0.60); BASOPHIL % 0 % (0.0-2.0); EOSINOPHIL % 0.1 % (0-5); HEMATOCRIT 51.6 % (42-52); MEAN CORPUSCULAR HGB 27.4 PG (27.0-31.0); MEAN CORPUSCULAR HGB CONC 31.5 G/DL (33.0-37.0); MEAN CORPUSCULAR VOLUME 87.2 FL (80.0-94.0); MEAN PLATELET VOLUME 7.9 FL (7.4-10.4); PLATELET COUNT 253 /CUMM (130-400); RBC DISTRIBUTION WIDTH 15.1 % (11.5-14.5); RED BLOOD CELL CT 5.92 /CUMM (4.70-6.10); WHITE BLOOD CELL COUNT 10.7 /CUMM (4.8-10.8)
[2018-01-06 08:59] LABS: GRANULOCYTE % 92.5 % (42.2-75.2)
[2018-01-06 09:12] VITALS: BP 156/102
--- NOTE | 2018-01-06 09:20 | PN- Housestaff ---
Rebeca Pendleton Nav Leslie 01/06/18 0920: Subjective Follow-up For: #COPD Exacerbation #Hypertension #History of IV drug use on methadone, hepatitis C s/p Harvoni treatment, carpal tunnel syndrome Subjective: No overnight event. Patient was eating breakfast when I entered. Patient stated he was compliant with BiPAP use overnight, and felt much improved on respiratory status. Review of Systems Constitutional: Reports: see HPI. Objective Last 24 Hrs of Vital Signs/I&O Vital Signs Date Time Temp Pulse Resp B/P B/P Pulse O2 O2 Flow FiO2 Mean Ox Delivery Rate 01/06 0912 100 24 156/102 93 Nasal 6.0L Cannula 01/06 0844 92 Nasal 6.0L Cannula 01/06 0800 91 Nasal 6.0L Cannula 01/06 0710 154/112 01/06 0621 85 188/110 01/06 0618 98.2 85 24 188/110 95 BIPAP 35% 01/06 0451 80 190/110 01/06 0428 190/110 01/06 0230 210/110 01/06 0029 190/110 01/06 0000 95 BIPAP 35% 01/05 2235 81 92 01/05 2226 95 210/110 01/05 2205 98.0 93 20 210/110 90 Nasal 4.0L Cannula 01/05 2141 BIPAP 35% 01/05 2009 75 177/80 01/05 1923 87 93 01/05 1909 95 BIPAP 35% 01/05 1909 97.1 75 25 177/80 95 BIPAP 35% 01/05 1821 74 90 01/05 1646 97.7 78 18 177/109 90 Nasal 2.5L Cannula 01/05 1628 73 95 01/05 1524 98.3 82 20 163/98 98 Venti Mask 45% 01/05 1523 79 95 01/05 1438 92 Venti Mask 45% 01/05 1307 70 Nasal 4.0L Cannula 01/05 1247 98.4 96 18 136/93 61 Room Air Intake & Output 01/06 1600 01/06 0800 01/06 0000 Intake Total 100 200 Output Total 250 Balance -150 200 Intake, Oral 100 200 Output, Urine 250 Patient 99.79 kg Weight Physical Exam General Appearance: Alert, Oriented X3, Cooperative, No Acute Distress Cardiovascular: Regular Rate Lungs: Normal Air Movement, auscultable bilateral wheeze however better compared to last day Abdomen: Normal Bowel Sounds, Soft, No Tenderness Neurological: Normal Speech Extremities: No Edema, Normal Pulses Assessment/Plan Assessment: Mr. Wells is a 42-year-old male with past medical history of hypertension diagnosed 10 years ago, migraines not currently on any medications, asthma and COPD on home oxygen 2-2.5L intermittently, history of IV drug use last used heroin 1 year prior to this admission currently on methadone, history of hepatitis C s/p Harvoni treatment, carpal tunnel syndrome, history of mutliple admissions over the past year for respiratory failure requiring intubation and ICU admission presented this admission with chief complaint of trouble breathing , weakness on/off for the last month but worsening for the last two days with 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 Patient's clinical picture resembled COPD exacerbation with hypercapnic respiratory failure, without active infection on imaging, and slightly elevated WBC likely from use of steroids. Patient may still have intermittend hypertension associated with migraine/vision change however not significantly active during admission. ER Course: Vitals: Stable, BP 163/98, satting 45% under ventimask, then had BiPAP x 1hr, then 2.5LNC satting >90% Physical exam as above -CBC: WBC 11.0 otherwise unremarkable -BMP: CO2 36, Cl 92, otherwise unremarkable -Misc: ABG 7.26/84/82/36 w/ 45% VM, Ddimer -ve -CXR: no acute pulmonary disease -EKG: Normal sinus rhythm without significant ST-T abnormalities. -Interventions in ER: TRC/Neb + Solumedrol x1 Problem list #COPD Exacerbation - Continue O2, TRCNeb/Symbicort/Spiriva, ensure BiPAP use. however per repiratory therapist, patient was using biPAP on/off with inconsistent compliance. ABG on admission 7.26/84/82/36 w/ 45% VM -> 7.27/75/91/16 w/ 35% No improvement shown. - Would hold methadone for now until ABG improved, otherwise risk of respiratory suppression. - Continue IV Solumedrol 40mg q8, Zithromax 500mg x 5 days, currently day 2 - Pending Sputum culture/urine Ag/strep #Hypertension urgence - Continued home meds including Lisinopril, HCTZ 25mg qd, #History of IV drug use on methadone, hepatitis C s/p Harvoni treatment, carpal tunnel syndrome - Continued home meds including Claritin. Hold methadone as above. DVT prophylaxis Lovenox + ALPS Heart Healthy Diet Full Code Problem List: 1. COPD exacerbation 2. Respiratory failure Pain Ratin Pain Location: NA Pain Goal: Remain pain free Pain Plan: see AP Tomorrow's Labs & Rationales: NA Karina Ng 01/06/18 1251: Attending MD Review Statement Attending Statement Attending MD Statement: examined this patient, discuss w/resident/PA/BUSINESS INTELLIGENCE ARCHITECT, agreed w/resident/PA/BUSINESS INTELLIGENCE ARCHITECT, discussed with family, reviewed EMR data (avail), discussed with nursing, discussed with case mgmt, reviewed images, amended to note Attending Assessment/Plan: Patient wanted to leave AMA. Patient explained risks/beenfits of medical management.
[2018-01-06] MEDS ORDERED: ZITHROMAX250 M2 PO ×2 (11:59→13:50)
[2018-01-06] MEDS ORDERED: PREDNISONE10 M2 PO ×2 (11:59→13:50)
--- NOTE | 2018-01-06 12:01 | Patient Discharge Instructions ---
Discharge Instructions General Discharge Information You were seen/treated for: #COPD Exacerbation #Hypertension #History of IV drug use on methadone, hepatitis C s/p Harvoni treatment, carpal tunnel syndrome Special Instructions: - Please follow up with your primary care physician within 1-2 week of discharge. Inform your primary care physician of this admission to [facility]. - Continue your current medications per discharge instructions. - Please watch for these problems: Fever, Chills, Nausea, Vomiting, Shortness of Breath, Productive Cough, Chest Pain/Discomfort, Abdominal Pain, Active Bleeding or Bloody urine/stool. Diet Continue normal diet: Yes Activity Full Activity/No Limits: Yes Acute Coronary Syndrome Inclusion Criteria At DC or during hospital stay patient has or had the following: ACS DIAGNOSIS No Discharge Core Measures Meds if any: Prescribed or Continued at Discharge Meds if any: NOT Prescribed or Continued at Discharge Congestive Heart Failure Inclusion Criteria At DC or during hospital stay patient has or had the following: CHF DIAGNOSIS No Discharge Core Measures Meds if any: Prescribed or Continued at Discharge Meds if any: NOT Prescribed or Continued at Discharge Cerebrovascular accident Inclusion Criteria At DC or during hospital stay patient has or had the following: CVA/TIA Diagnosis No Discharge Core Measures Meds if any: Prescribed or Continued at Discharge Meds if any: NOT Prescribed or Continued at Discharge Venous thromboembolism Inclusion Criteria VTE Diagnosis No VTE Type NONE VTE Confirmed by (Test) NONE Discharge Core Measures - Per Current guidelines, there needs to be overlap - treatment for the first 5 days of Warfarin therapy. - If discharged on Warfarin prior to 5 days of - overlap therapy, the patient will need to be - assessed for post discharge needs including - *Post discharge parental anticoagulation - *Warfarin and/or parental anticoagulation education - *Follow up date to check INR post discharge At least 5 days overlap therapy as Inpatient No Meds if any: Prescribed or Continued at Discharge Note: Overlap Therapy is Warfarin and Anticoagulant Meds if any: NOT Prescribed or Continued at Discharge
--- NOTE | 2018-01-06 12:54 | Event Note ---
Event Note Event Note: Situation: Patient will need to leave AGAINST MEDICAL ADVICE. Background: Starting around 11:00AM, patient stated that he needs his methadone at his confirmed dose from [facility] [place] (80mg daily). Discussed with attending and rn clinical coordinator over the phone regarding methadone use and reached agreement that patient's current respiratory condition would not warrant any methadone treatment in risk of respiratory suppression. Patient's ABG on on admission 7.26 /84/82/36 w/ 45% VM -> 7.27/75/91/16 w/ 35%, No improvement shown. Patient's O2 Sat under room air is 80% and had been using nasal canula only intermittently. Also, he was very drowsy, and would easily fall asleep even before completing a sentence. Assessment/recommendation: Given the patient's poor respiratory condition and altered mentation, most likely due to hypercarbia, decision to hold the methadone was made. This was explained to the patient, and we also called the [facility] [place] to confirm the methadone dose at 80mg daily. We were told that the admitting hospital ([facility]) should make decision on use of methadone or not per patient's clinical condition. Risks of giving methadone was fully explained to the patient and encouraged BiPAP use and explained that he could resume methadone once his respiratory status gets better and we could manage if he starts to show signs of withdrawal. Patient insisted to leave AGAINST MEDICAL ADVICE, despite fully understanding that his medical treatment is not complete, he is still in respiratory failure, and not finishing his treatment could lead to severe breathing problems, potentially leading to . Attending Dr. Karina Ng was also notified throughout the event, and rn clinical coordinator Dr. Evelio Jackson was also notified. The patient has capacity to understand and decide upon his treatment options including no treatment and its consequences. Hence, patient is being discharged AGAINST MEDICAL ADVICE, and the patient has signed the necessary paperwork for that as well. Nursing staff made aware, attending physician, resident made aware.
[2018-01-06] MEDS ORDERED: LISINOPRIL20 M1 PO (13:50)
--- NOTE | 2018-01-06 13:53 | Discharge Summary ---
Visit Information Visit Dates Admission Date: 01/05/18 Discharge Date: 01/06/2018 Hospital Course Course Attending Physician: Hernandez NICHOLS,Karina Primary Care Physician: Patient Has No Primary Care Dr Hospital Course: Mr. Wells is a 42-year-old male with past medical history of hypertension diagnosed 10 years ago, migraines not currently on any medications, asthma and COPD on home oxygen 2-2.5L intermittently, history of IV drug use last used heroin 1 year prior to this admission currently on methadone, history of hepatitis C s/p Harvoni treatment, carpal tunnel syndrome, history of mutliple admissions over the past year for respiratory failure requiring intubation and ICU admission presented this admission with chief complaint of trouble breathing , weakness on/off for the last month but worsening for the last two days with increasing exertional dyspnea while going upstairs [employer], 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 Patient's clinical picture resembled COPD exacerbation with hypercapnic respiratory failure, without active infection on imaging, and slightly elevated WBC likely from use of steroids. Patient may still have intermittend hypertension associated with migraine/vision change however not significantly active during admission. ER Course: Vitals: Stable, BP 163/98, satting 45% under ventimask, then had BiPAP x 1hr, then 2.5LNC satting >90% Physical exam as above -CBC: WBC 11.0 otherwise unremarkable -BMP: CO2 36, Cl 92, otherwise unremarkable -Misc: ABG 7.26/84/82/36 w/ 45% VM, Ddimer -ve -CXR: no acute pulmonary disease -EKG: Normal sinus rhythm without significant ST-T abnormalities. -Interventions in ER: TRC/Neb + Solumedrol x1 Problem list #COPD Exacerbation Upon admission, patient was given O2, TRCNeb/Symbicort/Spiriva, ensured BiPAP use. however per repiratory therapist, patient was using biPAP on/off with inconsistent compliance. ABG on admission 7.26/84/82/36 w/ 45% VM -> 7.27/75/91/16 w/ 35%, without significant improvement from patient's inconsistent use of BiPAP overnight. Patient was also started on IV Solumedrol and Zithromax 500mg x 5 days. However, patient became adament regarding receiving his daily Methadone dose, although his O2 Sat under room air was 80% and had been using nasal canula only intermittently. Also, he was very drowsy, and would easily fall asleep even before completing a sentence. Given the patient's poor respiratory condition and altered mentation, most likely due to hypercarbia, decision to hold the methadone was made. This was explained to the patient, and we also called the [facility] to confirm the methadone dose at 80mg daily. We were told that the admitting hospital ([facility]) should make decision on use of methadone or not per patient's clinical condition. Risks of giving methadone was fully explained to the patient and encouraged BiPAP use and explained that he could resume methadone once his respiratory status gets better and we could manage if he starts to show signs of withdrawal. Patient insisted to leave AGAINST MEDICAL ADVICE, despite fully understanding that his medical treatment is not complete, he is still in respiratory failure, and not finishing his treatment could lead to severe breathing problems, potentially leading to . Attending Dr. Karina Ng was also notified throughout the event, and socket puller Dr. Evelio Jackson was also notified. The patient has capacity to understand and decide upon his treatment options including no treatment and its consequences. Hence, patient is being discharged AGAINST MEDICAL ADVICE, and the patient has signed the necessary paperwork for that as well. Nursing staff made aware, attending physician, resident made aware. #Hypertension urgence Patient was continued home meds including Lisinopril, HCTZ 25mg qd, #History of IV drug use on methadone, hepatitis C s/p Harvoni treatment, carpal tunnel syndrome Patient was continued home meds including Claritin. Hold methadone as above. DVT prophylaxis Lovenox + ALPS Heart Healthy Diet Full Code Allergies: Coded Allergies: sumatriptan (From IMITREX) (Intermediate, CARDIAC FAILURE 11/24/17) Pertinent Lab Results: SERVICE DATE: 01/05/18 EXAM TYPE: RAD - XRY-PORTABLE CHEST XRAY IMPRESSION: No acute pulmonary disease. Laboratory Tests 01/06 01/06 0620 0420 Blood Gas pH (7.35 - 7.45 PH) 7.27 *L pCO2 (35 - 45 TORR) 75 *H pO2 (80 - 100 TORR) 91 HCO3 (21 - 28 MEQ/L) 16 L ABG O2 Sat (Measured) (>96.0 %) 92.0 L Carboxyhemoglobin (1.5 - 5.0 %) 3.7 O2 Concentration % .35 Respiration Rate (BPM) 24 O2 Delivery Method BIPAP Vent Mode ST Expiratory Pressure (CM H2O P) 6 Inspiratory Pressure (CM H2O P) 22 Chemistry Sodium (137 - 145 mmol/L) 141 Potassium (3.5 - 5.1 mmol/L) 4.6 Chloride (98 - 107 mmol/L) 90 L Carbon Dioxide (22 - 30 mmol/L) 37 H Anion Gap (5 - 16) 13 BUN (9 - 20 mg/dL) 23 H Creatinine (0.7 - 1.2 mg/dL) 0.6 L Estimated GFR (>60 ml/min) > 60 BUN/Creatinine Ratio (7 - 25 %) 38.3 H Hematology CBC w Diff NO MAN DIFF REQ WBC (4.8 - 10.8 /CUMM) 10.7 RBC (4.70 - 6.10 /CUMM) 5.92 Hgb (14.0 - 18.0 G/DL) 16.3 Hct (42 - 52 %) 51.6 MCV (80.0 - 94.0 FL) 87.2 MCH (27.0 - 31.0 PG) 27.4 MCHC (33.0 - 37.0 G/DL) 31.5 L RDW (11.5 - 14.5 %) 15.1 H Plt Count (130 - 400 /CUMM) 253 MPV (7.4 - 10.4 FL) 7.9 Gran % (42.2 - 75.2 %) 92.5 H Lymphocytes % (20.5 - 51.1 %) 5.2 L Monocytes % (1.7 - 9.3 %) 2.2 Eosinophils % (0 - 5 %) 0.1 Basophils % (0.0 - 2.0 %) 0 Absolute Granulocytes (1.4 - 6.5 /CUMM) 9.9 H Absolute Lymphocytes (1.2 - 3.4 /CUMM) 0.6 L Absolute Monocytes (0.10 - 0.60 /CUMM) 0.2 Absolute Eosinophils (0.0 - 0.7 /CUMM) 0 Absolute Basophils (0.0 - 0.2 /CUMM) 0 Miscellaneous Phlebotomy Draw Site RIGHT RADIAL 01/05 01/05 5833 [id number] Blood Gas pH (7.35 - 7.45 PH) 7.29 *L pCO2 (35 - 45 TORR) 75 *H pO2 (80 - 100 TORR) 75 L HCO3 (21 - 28 MEQ/L) 36 H ABG O2 Sat (Measured) (>96.0 %) 90.0 L P-50 (Temp Corrected) Y Carboxyhemoglobin (1.5 - 5.0 %) 4.6 O2 Concentration % 35% Temperature (97.0 - 100.0 FARH) 97.8 Respiration Rate (BPM) 24 O2 Delivery Method BIPAP Vent Mode ST Expiratory Pressure (CM H2O P) 6 Inspiratory Pressure (CM H2O P) 20 Miscellaneous Phlebotomy Draw Site RIGHT RADIAL Toxicology Urine Opiates Screen (>2000 NG/ML) 1271.00 Methadone Screen (>300 NG/ML) > 735 H Barbiturate Screen (>200 NG/ML) < 60 Ur Phencyclidine Scrn (>25 NG/ML) < 6.00 Amphetamines Screen (>1000 NG/ML) < 100 U Benzodiazepines Scrn (>200 NG/ML) < 85 Urine Cocaine Screen (>300 NG/ML) < 50 Urine Cannabis Screen (>50 NG/ML) < 5.00 Disposition Summary Disposition Principal Diagnosis: #COPD Exacerbation #BiPAP incompliance #Hypertension Urgency ##History of IV drug use on methadone, hepatitis C s/p Harvoni treatment, carpal tunnel syndrome Additional Diagnosis: As Above Discharge Disposition: left against medical adv Discharge Instructions General Discharge Information Code Status: Full Code Patient's Diet: Regular Diet Patient's Activity: As tolerated Follow-Up Instructions/Appts: - Please follow up with your primary care physician within 1-2 week of discharge. Inform your primary care physician of this admission to [facility]. - Continue your current medications per discharge instructions. - Please watch for these problems: Fever, Chills, Nausea, Vomiting, Shortness of Breath, Productive Cough, Chest Pain/Discomfort, Abdominal Pain, Active Bleeding or Bloody urine/stool. Medications at Discharge Discharge Medications: Stop taking the following medications: Methadone HCl (Methadone HCl) 10 MG/5 ML SOLUTION ORAL DAILY Prednisone (Prednisone) 20 MG TABLET ORAL SEE INSTRUCT Qty = 18 Azithromycin (Azithromycin) 500 MG TABLET ORAL DAILY Qty = 3 Continue taking these medications: Tiotropium [place] (Spiriva) 18 MCG CAP.W.DEV 1 Capsule Inhale through mouth DAILY Comments: Last Taken: 01/06/18 Time: 10:00 AM Albuterol Sulfate (Proair Hfa) 90 MCG HFA.AER.AD 2 Puff Inhale through mouth As Directed as needed for RESP. Comments: Last Taken: 01/06/18 Time: 12:00 PM Budesonide/Formoterol Fumarate (Symbicort 160-4.5 Mcg Inhaler) 160 MCG-4.5 MCG/ ACTUATION HFA.AER.AD 2 Puff Inhale through mouth Every Morning Comments: Last Taken: 01/06/18 Time: 10:00 AM Naproxen Sodium (Aleve) 220 MG CAPSULE 3-4 Tablet ORAL TWICE DAILY Comments: NOT GIVEN IN HOSPITAL Ibuprofen (Wal-Profen) 200 MG TABLET 4 Tablet ORAL as needed for PAIN Comments: NOT GIVEN IN HOSPITAL Cetirizine HCl (Zyrtec) 10 MG TABLET 1 Tablet ORAL DAILY Comments: NOT GIVEN IN HOSPITAL Hydrochlorothiazide (Hydrochlorothiazide) 25 MG TABLET 1 Tablet ORAL DAILY Qty = 30 Comments: Last Taken: 01/06/18 Time: 9:00 AM Start taking the following new medications: Prednisone (Prednisone) 10 MG TABLET 1 Tablet ORAL DAILY Qty = 20 No Refills Instructions: . Comments: 01/06-: Take 4 tablets, once daily 01/08-: Take 3 tablets, once daily 01/10-: Take 2 tablets, once daily 01/12-: Take 1 tablet, once daily 01/14: STOP NOT GIVEN IN HOSPTIAL Azithromycin (Zithromax) 250 MG TABLET 1 Dose Pack ORAL As Directed Qty = 3 No Refills Instructions: 2 the first day followed by 1 for days 2-5. Comments: Last Taken: 01/06/18 Time: 10:00 AM (RECEIVED IV DOSE) The following medications have been changed: Old: Lisinopril (Lisinopril) 20 MG TABLET 1 Tablet ORAL TWICE DAILY Qty = 30 New: Lisinopril (Lisinopril) 20 MG TABLET 1 Tablet ORAL TWICE DAILY Qty = 30 Instructions: . Comments: Last Taken: 01/06/18 Time: 5:30 AM Copies To: Unknown Attending MD Review Statement Documenting Attending: Karina Ng MD Other Findings: Bro left against medical advice.
--- NOTE | 2018-01-06 13:59 | Cons- Pulmonary ---
General Information and HPI Consulting Request Date of Consult: 01/06/18 Allergies/Medications Allergies: Coded Allergies: sumatriptan (From IMITREX) (Intermediate, CARDIAC FAILURE 11/24/17) Home Med List: Albuterol Sulfate (Proair Hfa) 90 MCG HFA.AER.AD 2 PUF INH AD PRN RESP. ( Reported) Azithromycin (Zithromax) 250 MG TABLET 1 DP PO AD COPD 2 the first day followed by 1 for days 2-5. Budesonide/Formoterol Fumarate (Symbicort 160-4.5 Mcg Inhaler) 160 MCG-4.5 MCG/ ACTUATION HFA.AER.AD 2 PUF INH QAM RESP. (Reported) Cetirizine HCl (Zyrtec) 10 MG TABLET 1 TAB PO DAILY ALLERGIES (Reported) Hydrochlorothiazide 25 MG TABLET 1 TAB PO DAILY htn Ibuprofen (Wal-Profen) 200 MG TABLET 4 TAB PO PRN PAIN (Reported) Lisinopril 20 MG TABLET 1 TAB PO BID Hypertension . Naproxen Sodium (Aleve) 220 MG CAPSULE 3-4 TAB PO BID PAIN (Reported) Prednisone 10 MG TABLET 1 TAB PO DAILY Prednisone taper . Tiotropium [place] (Spiriva) 18 MCG CAP.W.DEV 1 CAP INH DAILY RESP. (Reported ) Review of Systems Review of Systems Constitutional: Reports: see HPI. Past History Travel History Traveled to [place] past 21 day No Medical History Blood Transfusion Hx: No Neurological: migraine EENT: NONE Cardiovascular: hypertension Respiratory: bronchitis, COPD Gastrointestinal: NONE Hepatic: NONE Renal: NONE Musculoskeletal: NONE Psychiatric: IV drug abuse Endocrine: NONE Blood Disorders: NONE Cancer(s): NONE Surgical History Surgical History: non-contributory Psychosocial History Where Do You Live? Home Smoking Status: Current Some Day Smoker (5-10 cigs/day, cutting down) ETOH Use: occasional use Illicit Drug Use: denies illicit drug use Exam & Diagnostic Data Last 48 Hrs of Labs/Amadou: Laboratory Tests 01/06/18 0620: Anion Gap 13, Estimated GFR > 60, BUN/Creatinine Ratio 38.3 H, CBC w Diff NO MAN DIFF REQ, RBC 5.92, MCV 87.2, MCH 27.4, MCHC 31.5 L, RDW 15.1 H, MPV 7.9, Gran % 92.5 H, Lymphocytes % 5.2 L, Monocytes % 2.2, Eosinophils % 0.1, Basophils % 0, Absolute Granulocytes 9.9 H, Absolute Lymphocytes 0.6 L, Absolute Monocytes 0.2, Absolute Eosinophils 0, Absolute Basophils 0 01/06/18 0420: pH 7.27 *L, pCO2 75 *H, pO2 91, HCO3 16 L, ABG O2 Sat (Measured) 92.0 L, Carboxyhemoglobin 3.7, O2 Concentration % .35, Respiration Rate 24, O2 Delivery Method BIPAP, Vent Mode ST, Expiratory Pressure 6, Inspiratory Pressure 22, Phlebotomy Draw Site RIGHT RADIAL 01/05/18 2115: pH 7.29 *L, pCO2 75 *H, pO2 75 L, HCO3 36 H, ABG O2 Sat (Measured) 90.0 L, P- 50 (Temp Corrected) Y, Carboxyhemoglobin 4.6, O2 Concentration % 35%, Temperature 97.8, Respiration Rate 24, O2 Delivery Method BIPAP, Vent Mode ST, Expiratory Pressure 6, Inspiratory Pressure 20, Phlebotomy Draw Site RIGHT RADIAL 01/05/18 1852: Urine Opiates Screen 1271.00, Methadone Screen > 735 H, Barbiturate Screen < 60 , Ur Phencyclidine Scrn < 6.00, Amphetamines Screen < 100, U Benzodiazepines Scrn < 85, Urine Cocaine Screen < 50, Urine Cannabis Screen < 5.00 01/05/18 1505: pH 7.26 *L, pCO2 84 *H, pO2 82, HCO3 36 H, ABG O2 Sat (Measured) 95.0 L, P-50 (Temp Corrected) YES, Carboxyhemoglobin 5.7 *H, O2 Concentration % 45%, Temperature 98.4, O2 Delivery Method VM, Phlebotomy Draw Site RIGHT RADIAL 01/05/18 1249: Anion Gap 13, Estimated GFR > 60, BUN/Creatinine Ratio 41.3 H, Glucose 112 H, Calcium 9.7, Total Bilirubin 0.9, AST 32, ALT 29, Alkaline Phosphatase 86, Troponin I 0.04, Total Protein 7.7, Albumin 4.5, Globulin 3.2, Albumin/Globulin Ratio 1.4, D-Dimer High Sensitivty < 200, CBC w Diff NO MAN DIFF REQ, RBC 5.93, MCV 87.1, MCH 28.0, MCHC 32.1 L, RDW 15.1 H, MPV 7.3 L, Gran % 78.5 H, Lymphocytes % 11.1 L, Monocytes % 9.5 H, Eosinophils % 0.2, Basophils % 0.7, Absolute Granulocytes 8.6 H, Absolute Lymphocytes 1.2, Absolute Monocytes 1.0 H, Absolute Eosinophils 0, Absolute Basophils 0.1 01/05/18 0843: Urinalysis HEAVY H, Urine Color YEL, Urine Clarity TURBD H, Urine pH 6.0, Ur Specific [place] >= 1.030, Urine Protein 100 H, Urine Ketones NEG, Urine Nitrite NEG, Urine Bilirubin NEG, Urine Urobilinogen 0.2, Ur Leukocyte Esterase NEG, Ur Microscopic SEDIMENT EXAMINED, Urine RBC RARE, Ur Epithelial Cells RARE, Urine Hemoglobin TRACE-INTACT H, Urine Glucose NEG Microbiology 01/06 843 URINE ROUT: Legionella Antigen - COMP 01/06 843 URINE ROUT: Streptococcus pneumoniae Antigen (M - COMP 01/06 818 NASOPHARYN: Influenza Virus A & B Rapid Smear - COMP Assessment/Plan Consult Acknowledgment - Thank you for your consult request. 01/06 0428 190/110 01/06 0230 210/110 01/06 0029 190/110 01/06 0000 95 BIPAP 35% 01/05 2235 81 92 01/05 2226 95 210/110 01/05 2205 98.0 93 20 210/110 90 Nasal 4.0L Cannula 01/05 2141 BIPAP 35% 01/05 2009 75 177/80 01/05 1923 87 93 01/05 1909 95 BIPAP 35% 01/05 1909 97.1 75 25 177/80 95 BIPAP 35% 01/05 1821 74 90 01/05 1646 97.7 78 18 177/109 90 Nasal 2.5L Cannula 01/05 1628 73 95 01/05 1524 98.3 82 20 163/98 98 Venti Mask 45% 01/05 1523 79 95 01/05 1438 92 Venti Mask 45% Intake & Output 01/06 1600 01/06 0800 01/06 0000 Intake Total 100 200 Output Total 250 Balance -150 200 Intake, Oral 100 200 Output, Urine 250 Patient 220 lb Weight Last 48 Hrs of Labs/Amadou: Laboratory Tests 01/06/18 0620: Anion Gap 13, Estimated GFR > 60, BUN/Creatinine Ratio 38.3 H, CBC w Diff NO MAN DIFF REQ, RBC 5.92, MCV 87.2, MCH 27.4, MCHC 31.5 L, RDW 15.1 H, MPV 7.9, Gran % 92.5 H, Lymphocytes % 5.2 L, Monocytes % 2.2, Eosinophils % 0.1, Basophils % 0, Absolute Granulocytes 9.9 H, Absolute Lymphocytes 0.6 L, Absolute Monocytes 0.2, Absolute Eosinophils 0, Absolute Basophils 0 01/06/18 0420: pH 7.27 *L, pCO2 75 *H, pO2 91, HCO3 16 L, ABG O2 Sat (Measured) 92.0 L, Carboxyhemoglobin 3.7, O2 Concentration % .35, Respiration Rate 24, O2 Delivery Method BIPAP, Vent Mode ST, Expiratory Pressure 6, Inspiratory Pressure 22, Phlebotomy Draw Site RIGHT RADIAL 01/05/18 2115: pH 7.29 *L, pCO2 75 *H, pO2 75 L, HCO3 36 H, ABG O2 Sat (Measured) 90.0 L, P- 50 (Temp Corrected) Y, Carboxyhemoglobin 4.6, O2 Concentration % 35%, Temperature 97.8, Respiration Rate 24, O2 Delivery Method BIPAP, Vent Mode ST, Expiratory Pressure 6, Inspiratory Pressure 20, Phlebotomy Draw Site RIGHT RADIAL 01/05/18 1852: Urine Opiates Screen 1271.00, Methadone Screen > 735 H, Barbiturate Screen < 60 , Ur Phencyclidine Scrn < 6.00, Amphetamines Screen < 100, U Benzodiazepines Scrn < 85, Urine Cocaine Screen < 50, Urine Cannabis Screen < 5.00 01/05/18 1505: pH 7.26 *L, pCO2 84 *H, pO2 82, HCO3 36 H, ABG O2 Sat (Measured) 95.0 L, P-50 (Temp Corrected) YES, Carboxyhemoglobin 5.7 *H, O2 Concentration % 45%, Temperature 98.4, O2 Delivery Method VM, Phlebotomy Draw Site RIGHT RADIAL 01/05/18 1249: Anion Gap 13, Estimated GFR > 60, BUN/Creatinine Ratio 41.3 H, Glucose 112 H, Calcium 9.7, Total Bilirubin 0.9, AST 32, ALT 29, Alkaline Phosphatase 86, Troponin I 0.04, Total Protein 7.7, Albumin 4.5, Globulin 3.2, Albumin/Globulin Ratio 1.4, D-Dimer High Sensitivty < 200, CBC w Diff NO MAN DIFF REQ, RBC 5.93, MCV 87.1, MCH 28.0, MCHC 32.1 L, RDW 15.1 H, MPV 7.3 L, Gran % 78.5 H, Lymphocytes % 11.1 L, Monocytes % 9.5 H, Eosinophils % 0.2, Basophils % 0.7, Absolute Granulocytes 8.6 H, Absolute Lymphocytes 1.2, Absolute Monocytes 1.0 H, Absolute Eosinophils 0, Absolute Basophils 0.1 01/05/1843: Urinalysis HEAVY H, Urine Color YEL, Urine Clarity TURBD H, Urine pH 6.0, Ur Specific [place] >= 1.030, Urine Protein 100 H, Urine Ketones NEG, Urine Nitrite NEG, Urine Bilirubin NEG, Urine Urobilinogen 0.2, Ur Leukocyte Esterase NEG, Ur Microscopic SEDIMENT EXAMINED, Urine RBC RARE, Ur Epithelial Cells RARE, Urine Hemoglobin TRACE-INTACT H, Urine Glucose NEG Microbiology 01/06 843 URINE ROUT: Legionella Antigen - COMP 01/06 843 URINE ROUT: Streptococcus pneumoniae Antigen (M - COMP 01/06 818 NASOPHARYN: Influenza Virus A & B Rapid Smear - COMP Assessment/Plan Impression/Plan: Physical Exam General Appearance: Alert, Oriented X3, Cooperative, No Acute Distress Cardiovascular: Regular Rate Lungs: Normal Air Movement, auscultable mild bilateral wheeze Abdomen: Normal Bowel Sounds, Soft, No Tenderness Neurological: Normal Speech Extremities: trace Edema, Normal Pulses IMPRESSION Patient is a 42-year-old male with past medical history of hypertension diagnosed 10 years ago, migraines not currently on any medications, asthma and COPD on home oxygen 2-2.5L intermittently, history of IV drug use last used heroin 1 year prior to this admission currently on methadone, history of hepatitis C s/p Harvoni treatment, carpal tunnel syndrome, history of mutliple admissions over the past year for respiratory failure requiring intubation and ICU admission Now with Acute on chronic hypercarbic and hypoxic resp failure due to sub use, Untreated LEONILA with ohv with prob sig pulm htn Rt heart dysfunction due to above Sig erythrocytosis due to above and chronic hypoxia SIg obstructive lung disease due to smoking and drug use with prob bronchiolitis with recurrent resp failure, now with bronchitis Uncontrolled htn due to leonila, drug use and medical noncompliance Bacterial bronchitis with prob moraxella or hemophilus infection REc Cont oxygen Needs cpap or bipap a must at night Nebs atc with duo neb Symbicort Po prednisone 50 mg and taper in 2 weeks one dose of lasix po 40 Cont bp meds Add daily amlodapine Cont lisionpril Avoid beta camilo Avoid narcotics and antihistamine Add ceftin 500 po bid for seven days Per pt he is to follow with his out pt health evaluator upon dc in [place] Consult Acknowledgment - Thank you for your consult request.
== END 2018-01-06 14:25 | disposition left against medical advice (07) | DRG 140 ==
LOC: ERH 12:29 → 2NB 14:33 → ERHI 14:33 → ENRESERV 17:33 → ENTRNSPT 18:27 → CMPTRNSPT 18:33 → 2NB 19:05 → ENPENDDIS 01-06 13:56 → 2NB 01-06 14:25
PROVIDERS: Emergency Medicine; Student in an Organized Health Care Education/Training Program
DX: J44.1 Chronic obstructive pulmonary disease with (acute) exacerbation (principal); J20.9 Acute bronchitis, unspecified; J44.0 Chronic obstructive pulmonary disease with (acute) lower respiratory infection; Z99.81 Dependence on supplemental oxygen; J96.01 Acute respiratory failure with hypoxia; J96.02 Acute respiratory failure with hypercapnia; E66.2 Morbid (severe) obesity with alveolar hypoventilation; Z68.33 Body mass index [BMI] 33.0-33.9, adult; I16.0 Hypertensive urgency; E66.9 Obesity, unspecified; F11.90 Opioid use, unspecified, uncomplicated; B19.20 Unspecified viral hepatitis C without hepatic coma; F17.200 Nicotine dependence, unspecified, uncomplicated
CPT/HCPCS: 2NBSP; 36592; 71045; 80307; 81001; 82436; 87070; 87449; 87450; 87804; 87804-59; 93005; 93010; J0131; J0456; J1650; J2920; J2930; J3490; J7060